=== PATIENT | female | born 1995 | race Caucasian/White ===

== ENCOUNTER 2019-06-25 22:39 | Emergency (ER) | payer OTHER ==
--- NOTE | 2019-06-25 23:24 | XR ---
EXAM: XR Bilateral Hips With Pelvis When Performed, 2 Views CLINICAL HISTORY: Pain TECHNIQUE: Two views of the bilateral hips, with pelvis when performed. COMPARISON: No relevant prior studies available. FINDINGS: Bones/joints: Unremarkable. No acute fracture. No dislocation. Soft tissues: Unremarkable. IMPRESSION: Normal bilateral hips x-rays.
[2019-06-25] MEDS ORDERED: KETOROLAC 60 MG/2 ML VIAL IM STA (23:28)
--- NOTE | 2019-06-25 23:50 | ED ---
General Adult HPI - General Chief complaint: Extremity Problem,Nontraumatic Stated complaint: Hip Pain Time Seen by Provider: 06/25/19 22:50 Source: patient, RN notes reviewed, old records reviewed Mode of arrival: ambulatory Limitations: no limitations - History of Present Illness Initial comments: 23-year-old female patient, no pertinent past medical history presents to ED with chief complaint of lateral hip pain. Patient reports that she has had hip pain for years, denies any new recent trauma or exacerbation. Patient has a loss of bowel or bladder control, saddle anesthesia, lower extremity weakness. Patient fourth that she has seen as well as surgeon for this before, was advised to use nonsteroidal anti-inflammatories. Patient denies any other complaints at this time. Patient states that she is not . Denies any rash, redness, fevers chills. Systemic: Pt denies fatigue, fever/chills, rash. Pt denies weakness, night sweats, weight loss. Neuro: Pt denies headache, visual disturbances, syncope or pre-syncope. HEENT: Pt denies ocular discharge or irritation, otalgia, rhinorrhea, pharyngitis or notable lymphadenopathy. Cardiopulmonary: Pt denies chest pain, SOB, heart palpitations, dyspnea on exertion. Abdominal/GI: Pt denies abdominal pain, n/v/d. : Pt denies dysuria, burning w/ urination, frequency/urgency. Denies new onset urinary or bowel incontinence. MSK: Pt denies loss of strength or function in extremities. Neuro: Pt denies new onset weakness, paresthesias. - Related Data Allergies Allergy/AdvReac Type Severity Reaction Status Date / Time No Known Allergies Allergy Verified 06/25/19 22:44 Review of Systems ROS Statement: Those systems with pertinent positive or pertinent negative responses have been documented in the HPI. ROS Other: All systems not noted in ROS Statement are negative. Past Medical History Additional Past Medical History / Comment(s): ovarian cyst History of Any Multi-Drug Resistant Organisms: None Reported Past Surgical History: Bowel Resection Past Psychological History: No Psychological Hx Reported Smoking Status: Current every day smoker Past Alcohol Use History: None Reported Past Drug Use History: None Reported General Exam - General Exam Comments Initial Comments: Constitutional: NAD, AOX3, Pt has pleasant affect. HEENT: NC/AT, trachea midline, neck supple, no lymphadenopathy. Posterior pharynx non erythematous, without exudates. External ears appear normal, without discharge. Mucous membranes moist. Eyes PERRLA, EOM intact. There is no scleral icterus. No pallor noted. Cardiopulmonary: RRR, no murmurs, rubs or gallops, no JVD noted. Lungs CTAB in anterior and posterior caraballo. No peripheral edema. Abdominal exam: Abdomen soft and non-distended. Abdomen non-tender to palpation in all 4 quadrants. Bowel sounds active in LLQ. No hepatosplenomegaly. No ecchymosis Neuro: CN II-XII grossly intact. No nuchal rigidity. No raccon eyes, no swift sign, no hemotympanum. No cervical spinal tenderness. MSK: No posterior calf tenderness bilaterally, homans sign negative bilaterally. Posterior tibialis and radial pulse +2 bilaterally. Sensation intact in upper and lower extremities. Full active ROM in upper and lower extremities, 5/5 stregnth. Ambulatory without difficulty. No tenderness to palpation. Still pulses intact and equal. Limitations: no limitations Course Vital Signs 06/25/19 22:42 Temperature 98.0 F Pulse Rate 76 Respiratory 18 Rate Blood Pressure 137/86 O2 Sat by Pulse 99 Oximetry Medical Decision Making - Medical Decision Making 23-year-old female patient with chief complaint of chronic bilateral hip pain. Patient wasn't stable, afebrile. Physical exam did not acute pathology. Plain films as acute pathology. Patient administered 1 dose of Toradol. Patient will discharge, follow up with primary care provider and orthopedic consult, use nonsteroidal anti-inflammatories as needed for pain. Case discussed with Dr. Rodriges. Disposition Clinical Impression: Arthralgia Disposition: HOME SELF-CARE Condition: Stable Instructions (If sedation given, give patient instructions): Arthralgia (ED) Additional Instructions: Patient to adhere to previously discussed treatment plan and will take medication(s) as directed. Patient to follow up with PCP in 1-2 days. Patient to return to ED if symptoms do not improve. Follow up with primary care provider tomorrow, follow up with orthopedic consult symptoms persist. Use Tylenol or Motrin as needed for pain. Return to ER if conditions worsen. Is patient prescribed a controlled substance at d/c from ED?: No Referrals: Amy Robledo MD [Primary Care Provider] - 1-2 days Branch,Ronak M, PAC [PHYSICIAN AIR CONDITIONING TECHNICIAN] - 1-2 days
[2019-06-26 00:01] VITALS: BP 132/89; PULSE 73; RESP 18; TEMP 98.1
== END 2019-06-25 23:59 | disposition home or self-care (01) ==
LOC: EC 22:39
DX: M25.552 Pain in left hip (principal); M25.551 Pain in right hip; G89.29 Other chronic pain; R53.1 Weakness; F17.200 Nicotine dependence, unspecified, uncomplicated
CPT/HCPCS: 73521; 96372; 99284; J1885

== ENCOUNTER → 2021-07-08 | Outpatient (CLI) | payer OTHER ==
--- NOTE | 2021-07-08 16:59 | MR ---
EXAMINATION TYPE: MR venography head wo con DATE OF EXAM: 07/08/2021 COMPARISON: None HISTORY: Papillitis MR venographic images were obtained of the brain with no contrast. There is venous flow seen in the superior sagittal sinus. There is flow in the cerebral vein. There i s flow in the sigmoid sinus and the transverse sinus. There is flow in the jugular veins. There is no evidence of sinus vein thrombosis. IMPRESSION: Normal MR venogram of the brain.
--- NOTE | 2021-07-08 18:33 | MR ---
EXAMINATION TYPE: MR brain/orbits wo/w con DATE OF EXAM: 07/08/2021 COMPARISON: None HISTORY: Papillitis CONTRAST: Standard multiplanar, multisequence MRI departmental protocol utilizing 10 mL intravenous Gadavist ga dolinium contrast. Additional images were obtained of the orbits. Ventricles and sulci appear normal. There is no mass effect nor midline shift. There is no evidence o f intracranial hemorrhage. Diffusion images show no evidence of an acute infarct. Alvarado-white matter s tructures have fairly normal signal pattern. There is no evidence of cerebral edema. Brainstem is int act. There is no evidence of posterior fossa mass. Exam limited slightly by motion. There is no evidence of retro-orbital mass. Extraocular muscles appear symmetric. Optic nerves appear normal. There is no increased fluid. The corpus callosum appears normal. Sella turcica appears normal. Optic chiasm appears normal. Pituit bernardo stalk is in the midline. There is no pathologic intracranial enhancement. There is normal enhance ment of the venous sinuses. IMPRESSION: Normal MR scan of the brain. No evidence of orbital abnormality.
== END | disposition home or self-care (01) ==
LOC: RADMRIMAIN 09:02
PROVIDERS: ATTEND Ophthalmology
DX: H46.03 Optic papillitis, bilateral (principal)
CPT/HCPCS: 70544; 70543; 70553; A9585

== ENCOUNTER 2021-10-16 07:31 | Day surgery (SDC) | payer OTHER ==
[2021-10-16] MEDS ORDERED: diazePAM 5 MG TAB PO PRN (08:20)
[2021-10-16 08:41] VITALS: TEMP 98.2
--- NOTE | 2021-10-16 13:16 | FL ---
PROCEDURE: Lumbar puncture. 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 The patient and the patient's vital signs were monitored by qualified independent radiology personnel. TECHNIQUE: The procedure and potential risks were explained to patient and an informed consent was obtained with teach back. Site and side was verified. A time out was performed. The patient was placed prone on the fluoroscopy table and the L3-L4 level was localized and the skin was marked and was prepped and draped in the usual sterile fashion. Lidocaine was used for local anesthesia. Utilizing fluoroscopic guidance a 5 inch 22-gauge spinal nee dle was placed through the skin and into the subarachnoid space. Opening pressure was recorded at 13 cm H2O. Approximately 8 mL of clear, colorless (but initially blood-tinged) cerebral spinal fluid was obtain ed. The patient tolerated the procedure well and was sent back to the recovery room in satisfactory condi tion. The fluid was sent to the lab for analysis. The estimated blood loss was minimal. The patient's condition was unchanged following the procedure. Fluoroscopy time: 18 seconds Total images: 1. IMPRESSION: Successful accumulation of 8 mL of clear (but initially blood-tinged) CSF. Opening pressure recorded at 13 cm H2O.
[2021-10-16 16:38] VITALS: PULSE 87
[2021-10-16 16:43] VITALS: BP 135/74; RESP 16
== END 2021-10-16 14:00 | disposition home or self-care (01) ==
LOC: RADPROMAIN 07:31
PROVIDERS: ATTEND Ophthalmology
DX: H46.03 Optic papillitis, bilateral (principal)
CPT/HCPCS: 62328; 88108

== ENCOUNTER 2021-12-22 13:44 | Emergency (ER) | payer OTHER ==
[2021-12-22 13:48] VITALS: TEMP 98.6
[2021-12-22] MEDS ORDERED: IBUPROFEN 800 MG TAB PO STA (14:37)
--- NOTE | 2021-12-22 14:45 | ED ---
General Adult HPI - General Chief complaint: Dizziness Stated complaint: Fall-R foot injury Time Seen by Provider: 12/22/21 14:35 Source: patient, RN notes reviewed, old records reviewed Mode of arrival: wheelchair Limitations: no limitations - History of Present Illness Initial comments: 26-year-old female, alert and oriented 4, presents to the emergency room with complaints of right ankle pain and swelling. Patient states she stood up last night around 9:30pm and got dizzy causing her to twist her ankle. She states that she didn't eat all day yesterday which she believes was the cause of her dizziness. Her symptoms have resolved however the right ankle is swollen and painful with movement which is why she came to ER. She denies any other symptoms, no fevers, no nausea, vomiting diarrhea or fevers. She is a pack-a-day smoker -: hour(s) (18) Location: right, lower extremity (Ankle) Radiation: proximal (Lower leg) Severity scale (1-10): 5 Quality: aching Improves with: immobilization Worsens with: movement Associated Symptoms: denies other symptoms - Related Data Home Medications Medication Instructions Recorded Confirmed Dextroamphetamine/Amphetamine 25 mg PO DAILY 10/05/21 12/22/21 [Adderall Xr] Etonogestrel [Nexplanon] 1 implant SQ DIRECTED 10/05/21 12/22/21 Ibuprofen [Advil] 200 mg PO Q8HR PRN 10/05/21 12/22/21 OXcarbazepine [Trileptal] 300 mg PO BID 10/05/21 12/22/21 cloNIDine HCL 0.2 mg PO HS 10/05/21 12/22/21 hydrOXYzine pamoate [hydrOXYzine 25 mg PO QID PRN 10/05/21 12/22/21 PAMOATE] Mirtazapine [Remeron] 45 mg PO HS 12/22/21 12/22/21 Previous Rx's Medication Instructions Recorded Ibuprofen [Motrin] 800 mg PO Q6HR #30 tab 12/22/21 Allergies Allergy/AdvReac Type Severity Reaction Status Date / Time Penicillins Allergy Rash/Hives Verified 12/22/21 15:31 Review of Systems ROS Statement: Those systems with pertinent positive or pertinent negative responses have been documented in the HPI. ROS Other: All systems not noted in ROS Statement are negative. Past Medical History Past Medical History: No Reported History Additional Past Medical History / Comment(s): ovarian cyst, frequent headaches which patient states her Doctor thinks has to do with her eyes History of Any Multi-Drug Resistant Organisms: None Reported Past Surgical History: Bowel Resection, Section Additional Past Surgical History / Comment(s): eye surgery as a 5 year old, bowel surgery at 4 months Past Anesthesia/Blood Transfusion Reactions: No Reported Reaction Additional Past Anesthesia/Blood Transfusion Reaction / Comment(s): patient was an infant with surgery so not sure but does not think she had a reaction, no previous blood transfusion Past Psychological History: Anxiety, Depression Smoking Status: Current every day smoker Past Alcohol Use History: Occasional Past Drug Use History: None Reported - Past Family History Mother Family Medical History: No Reported History Additional Family Medical History / Comment(s): Maternal Aunt has MS General Exam Limitations: no limitations General appearance: alert, in no apparent distress Respiratory exam: Present: normal lung sounds bilaterally. Absent: respiratory distress, wheezes, rales, rhonchi, stridor, chest wall tenderness, accessory muscle use, decreased breath sounds Cardiovascular Exam: Present: regular rate, normal rhythm GI/Abdominal exam: Present: soft. Absent: distended, tenderness Right Ankle exam: Present: full ROM, tenderness (Right lateral ankle), swelling. Absent: abrasion, laceration, ecchymosis, crepitus, dislocation, erythema Foot/Toe exam: Present: normal inspection, full ROM. Absent: tenderness, swelling, ecchymosis Neurovascular tendon exam: Present: no vascular compromise. Absent: abnormal cap refill, extremity cold to touch, pallor, foot drop (Achilles tendon intact by pinch test) Neurological exam: Present: alert, oriented X3 Psychiatric exam: Present: normal affect, normal mood Skin exam: Present: warm, dry, intact. Absent: cyanosis, diaphoretic Course Vital Signs 12/22/21 13:45 Temperature 98.6 F Pulse Rate 92 Respiratory 20 Rate Blood Pressure 150/82 O2 Sat by Pulse 100 Oximetry Medical Decision Making - Medical Decision Making Patient presents with right ankle pain after rolling it yesterday at home around 9:30 PM. She states that she was dizzy at that time because she hadn't eaten all day. Her dizziness has resolved. X-ray of the right ankle shows no fracture or dislocation. Joint spaces appear within normal limits. There is some soft tissue swelling laterally. She denies midfoot pain. Patient does have good range of motion. Capillary refill less than 2 seconds and pedal pulses are present. Patient was given an air splint directed and follow-up with orthopedics in 1 week if pain continues. Tylenol or Motrin for pain. Rest, ice and elevate. Case discussed with Dr. Barrett Karimi Clinical Impression: Ankle sprain Disposition: HOME SELF-CARE Condition: Good Instructions (If sedation given, give patient instructions): Ankle Sprain (ED), Ankle Stirrup Splint (ED) Additional Instructions: Rest, ice, and elevate ankle at home. Wear the ankle splint as provided for support. Take Motrin as needed for pain. Follow-up with orthopedics next week. Return to the emergency room with a new or concerning symptoms. Prescriptions: Ibuprofen [Motrin] 800 mg PO Q6HR #30 tab Is patient prescribed a controlled substance at d/c from ED?: No Referrals: Amy Robledo MD [Primary Care Provider] - 1-2 days Kianna Bal DO [Doctor of Osteopathic Medicine] - 1-2 days Time of Disposition: 15:27
--- NOTE | 2021-12-22 15:00 | XR ---
EXAMINATION TYPE: XR ankle complete RT DATE OF EXAM: 12/22/2021 COMPARISON: NONE HISTORY: Pain TECHNIQUE: Frontal, lateral and oblique images of the right ankle are obtained. COMPARISON: None. FINDINGS: There is no acute fracture/dislocation evident. The joint spaces appear within normal odonnell its. Soft tissue swelling laterally. IMPRESSION: There is no acute fracture or dislocation seen.
[2021-12-22 17:22] VITALS: BP 118/79; PULSE 76; RESP 18
== END 2021-12-22 16:05 | disposition home or self-care (01) ==
LOC: EC 13:44
DX: S93.401A Sprain of unspecified ligament of right ankle, initial encounter (principal); F17.200 Nicotine dependence, unspecified, uncomplicated; Z88.0 Allergy status to penicillin; X50.1XXA Overexertion from prolonged static or awkward postures, initial encounter
CPT/HCPCS: 73610; 99283; 29515; L4350

== ENCOUNTER 2022-05-11 18:43 | Emergency (ER) | payer OTHER ==
[2022-05-11 19:50] LABS: Appearance,Urine Turbid (Clear); Bilirubin,Urine Negative (Negative); Blood,Urine Large (Negative); Color,Urine Yellow; Glucose,Urine (UA) Negative (Negative); Ketones,Urine Negative (Negative); Leukocyte Esterase,Urine Large (Negative); Mucus,Urine Rare /hpf; Nitrite,Urine Negative (Negative); Protein,Urine 1+ (Negative); RBC,Urine 88 /hpf (0-5); Specific Gravity,Urine 1.013 (1.001-1.035); Urobilinogen,Urine <2.0 mg/dL (<2.0); WBC,Urine >182 /hpf (0-5)
[2022-05-11] MEDS ORDERED: KETOROLAC 15 MG/ML 1 ML VIAL IVP STA (20:05)
--- NOTE | 2022-05-11 20:09 | ED ---
Female Urogenital HPI - General Chief complaint: Urogenital Stated complaint: UTI Time Seen by Provider: 05/11/22 20:00 Source: patient, family, RN notes reviewed, old records reviewed Mode of arrival: ambulatory Limitations: no limitations - History of Present Illness Initial comments: 26-year-old female presents with 1 month of dysuria. She states that she has now developed left flank pain which made her come to the hospital. She states that the pain is 10 out of 10 and constant in nature. Worse with palpation. No reported fevers. Denies nausea vomiting. She is a 2-3 pack a day smoker. MD Complaint: dysuria -: month(s) (1) Radiation: L flank Severity scale (1-10): 10 Quality: aching Consistency: constant Improves with: none Worsens with: movement Associated Symptoms: dysuria - Related Data Home Medications Medication Instructions Recorded Confirmed Dextroamphetamine/Amphetamine 25 mg PO DAILY 10/05/21 12/22/21 [Adderall Xr] Etonogestrel [Nexplanon] 1 implant SQ DIRECTED 10/05/21 12/22/21 Ibuprofen [Advil] 200 mg PO Q8HR PRN 10/05/21 12/22/21 OXcarbazepine [Trileptal] 300 mg PO BID 10/05/21 12/22/21 cloNIDine HCL 0.2 mg PO HS 10/05/21 12/22/21 hydrOXYzine pamoate [hydrOXYzine 25 mg PO QID PRN 10/05/21 12/22/21 PAMOATE] Mirtazapine [Remeron] 45 mg PO HS 12/22/21 12/22/21 Previous Rx's Medication Instructions Recorded Ibuprofen [Motrin] 800 mg PO Q6HR #30 tab 12/22/21 Cephalexin [Keflex] 500 mg PO Q8HR 5 Days #15 cap 05/11/22 Allergies Allergy/AdvReac Type Severity Reaction Status Date / Time Penicillins Allergy Rash/Hives Verified 05/11/22 19:24 Review of Systems ROS Statement: Those systems with pertinent positive or pertinent negative responses have been documented in the HPI. ROS Other: All systems not noted in ROS Statement are negative. Past Medical History Past Medical History: No Reported History Additional Past Medical History / Comment(s): ovarian cyst, frequent headaches which patient states her Doctor thinks has to do with her eyes History of Any Multi-Drug Resistant Organisms: None Reported Past Surgical History: Bowel Resection, Section Additional Past Surgical History / Comment(s): eye surgery as a 5 year old, bowel surgery at 4 months Past Anesthesia/Blood Transfusion Reactions: No Reported Reaction Additional Past Anesthesia/Blood Transfusion Reaction / Comment(s): patient was an with surgery so not sure but does not think she had a reaction, no previous blood transfusion Past Psychological History: Anxiety, Depression Smoking Status: Current every day smoker Past Alcohol Use History: Occasional Past Drug Use History: None Reported - Past Family History Mother Family Medical History: No Reported History Additional Family Medical History / Comment(s): Maternal Aunt has MS General Exam Limitations: no limitations General appearance: alert, in no apparent distress Head exam: Present: atraumatic ENT exam: Present: mucous membranes moist Neck exam: Absent: tenderness, meningismus Respiratory exam: Present: normal lung sounds bilaterally. Absent: respiratory distress, accessory muscle use Cardiovascular Exam: Present: regular rate GI/Abdominal exam: Present: soft. Absent: distended, rigid Back exam: Present: normal inspection, full ROM, CVA tenderness (L). Absent: tenderness, CVA tenderness (R), vertebral tenderness, rash noted Neurological exam: Present: alert, oriented X3, normal gait Psychiatric exam: Present: normal affect, normal mood Skin exam: Present: warm, dry, normal color. Absent: cyanosis, diaphoretic, petechiae, pallor Course Vital Signs 05/11/22 05/11/22 19:24 22:45 Temperature 97.6 F 98.1 F Pulse Rate 84 92 Respiratory 16 15 Rate Blood Pressure 148/101 123/89 O2 Sat by Pulse 100 98 Oximetry Medical Decision Making - Medical Decision Making Ultrasound kidneys and bladder show no evidence of renal mass. There is some echogenicity in the urinary bladder that could be small stones or debris. No hydronephrosis. White blood cell count is 14.5. Urinalysis shows occasional bacteria with greater than 182 white blood cells. Vital signs are stable. Afebrile. Patient will be treated for UTI with Keflex directed follow-up with her primary care doctor and urology next week for reevaluation. Return to the emergency room with a concerning symptoms including fevers, persistent nausea vomiting or increased pain. - Lab Data Result diagrams: 05/11/22 21:09 05/11/22 21:09 Lab Results 05/11/22 05/11/22 05/11/22 Range/Units 19:25 19:25 21:09 WBC 14.5 H (3.8-10.6) k/uL RBC 5.17 (3.80-5.40) m/uL Hgb 16.3 H (11.4-16.0) gm/dL Hct 46.6 H (34.0-46.0) % MCV 90.1 (80.0-100.0) fL MCH 31.6 (25.0-35.0) pg MCHC 35.1 (31.0-37.0) g/dL RDW 12.4 (11.5-15.5) % Plt Count 297 (150-450) k/uL MPV 8.3 Neutrophils % 74 % Lymphocytes % 18 % Monocytes % 5 % Eosinophils % 1 % Basophils % 1 % Neutrophils # 10.7 H (1.3-7.7) k/uL Lymphocytes # 2.6 (1.0-4.8) k/uL Monocytes # 0.8 (0-1.0) k/uL Eosinophils # 0.2 (0-0.7) k/uL Basophils # 0.1 (0-0.2) k/uL Sodium (137-145) mmol/L Potassium (3.5-5.1) mmol/L Chloride (98-107) mmol/L Carbon Dioxide (22-30) mmol/L Anion Gap mmol/L BUN (7-17) mg/dL Creatinine (0.52-1.04) mg/dL Est GFR (CKD-EPI)AfAm (>60 ml/min/1.73 sqM) Est GFR (CKD-EPI)NonAf (>60 ml/min/1.73 sqM) Glucose (74-99) mg/dL Calcium (8.4-10.2) mg/dL Total Bilirubin (0.2-1.3) mg/dL AST (14-36) U/L ALT (4-34) U/L Alkaline Phosphatase (38-126) U/L Total Protein (6.3-8.2) g/dL Albumin (3.5-5.0) g/dL Urine Color Yellow Yellow Urine Appearance Turbid H Turbid H (Clear) Urine pH 6.0 6.0 (5.0-8.0) Ur Specific [place] 1.013 1.014 (1.001-1.035) Urine Protein 1+ H 1+ H (Negative) Urine Glucose (UA) Negative Negative (Negative) Urine Ketones Negative Negative (Negative) Urine Blood Large H Moderate H (Negative) Urine Nitrite Negative Negative (Negative) Urine Bilirubin Negative Negative (Negative) Urine Urobilinogen <2.0 <2.0 (<2.0) mg/dL Ur Leukocyte Esterase Large H Large H (Negative) Urine RBC 88 H 59 H (0-5) /hpf Urine WBC >182 H >182 H (0-5) /hpf Urine WBC Clumps Many H Many H (None) /hpf Urine Bacteria Occasional H (None) /hpf Urine Mucus Rare H Rare H (None) /hpf 05/11/22 Range/Units 21:09 WBC (3.8-10.6) k/uL RBC (3.80-5.40) m/uL Hgb (11.4-16.0) gm/dL Hct (34.0-46.0) % MCV (80.0-100.0) fL MCH (25.0-35.0) pg MCHC (31.0-37.0) g/dL RDW (11.5-15.5) % Plt Count (150-450) k/uL MPV Neutrophils % % Lymphocytes % % Monocytes % % Eosinophils % % Basophils % % Neutrophils # (1.3-7.7) k/uL Lymphocytes # (1.0-4.8) k/uL Monocytes # (0-1.0) k/uL Eosinophils # (0-0.7) k/uL Basophils # (0-0.2) k/uL Sodium 141 (137-145) mmol/L Potassium 4.7 (3.5-5.1) mmol/L Chloride 109 H (98-107) mmol/L Carbon Dioxide 18 L (22-30) mmol/L Anion Gap 14 mmol/L BUN 7 (7-17) mg/dL Creatinine 0.71 (0.52-1.04) mg/dL Est GFR (CKD-EPI)AfAm >90 (>60 ml/min/1.73 sqM) Est GFR (CKD-EPI)NonAf >90 (>60 ml/min/1.73 sqM) Glucose 80 (74-99) mg/dL Calcium 10.3 H (8.4-10.2) mg/dL Total Bilirubin 1.4 H (0.2-1.3) mg/dL AST 38 H (14-36) U/L ALT 22 (4-34) U/L Alkaline Phosphatase 100 (38-126) U/L Total Protein 8.9 H (6.3-8.2) g/dL Albumin 5.5 H (3.5-5.0) g/dL Urine Color Urine Appearance (Clear) Urine pH (5.0-8.0) Ur Specific [place] (1.001-1.035) Urine Protein (Negative) Urine Glucose (UA) (Negative) Urine Ketones (Negative) Urine Blood (Negative) Urine Nitrite (Negative) Urine Bilirubin (Negative) Urine Urobilinogen (<2.0) mg/dL Ur Leukocyte Esterase (Negative) Urine RBC (0-5) /hpf Urine WBC (0-5) /hpf Urine WBC Clumps (None) /hpf Urine Bacteria (None) /hpf Urine Mucus (None) /hpf Disposition Clinical Impression: Urinary tract infection Disposition: HOME SELF-CARE Condition: Good Instructions (If sedation given, give patient instructions): Urinary Tract Infection in Women (ED) Additional Instructions: Take antibiotics as prescribed and follow-up with urology next week. Return to the emergency room with any new or concerning symptoms. Prescriptions: Cephalexin [Keflex] 500 mg PO Q8HR 5 Days #15 cap Is patient prescribed a controlled substance at d/c from ED?: No Referrals: Magalis Montanez MD [Primary Care Provider] - 1-2 days Kulwinder Tse MD [STAFF PHYSICIAN] - 1-2 days Time of Disposition: 22:12
[2022-05-11] MEDS ORDERED: cefTRIAXone IN SWFI 1,000 MG/10 ML SYRINGE IVP STA (20:48)
[2022-05-11 21:36] LABS: Basophils # (A) 0.1 k/uL (0-0.2); Basophils % (A) 1 %; Eosinophils # (A) 0.2 k/uL (0-0.7); Eosinophils % (A) 1 %; HCT 46.6 % (34.0-46.0); HGB 16.3 gm/dL (11.4-16.0); Lymphocytes # (A) 2.6 k/uL (1.0-4.8); Lymphocytes % (A) 18 %; MCH 31.6 pg (25.0-35.0); MCHC 35.1 g/dL (31.0-37.0); MCV 90.1 fL (80.0-100.0); Mean Platelet Volume 8.3; Monocytes # (A) 0.8 k/uL (0-1.0); Monocytes % (A) 5 %; Neutrophils # (A) 10.7 k/uL (1.3-7.7); Neutrophils % (A) 74 %; Platelet Count 297 k/uL (150-450); RBC 5.17 m/uL (3.80-5.40); RDW 12.4 % (11.5-15.5); WBC 14.5 k/uL (3.8-10.6)
--- NOTE | 2022-05-11 22:01 | US ---
EXAMINATION TYPE: US kidneys/renal and bladder DATE OF EXAM: 05/11/2022 COMPARISON: NONE CLINICAL HISTORY: left flank pain. lt flank pain, dysuria EXAM MEASUREMENTS: Right Kidney: 10.2 x 5.0 x 4.8 cm Left Kidney: 10.8 x 4.3 x 6.2 cm Right Kidney: No hydronephrosis or masses seen Left Kidney: No hydronephrosis or masses seen Bladder: left sided dependant sediment versus other etiology Bilateral Jets seen: only the left There is no evidence for hydronephrosis at this point in time. No nephrolithiasis is seen. No armand s are identified. The urinary bladder is anechoic. Bilateral ureteral jets are seen. IMPRESSION: No evidence of renal mass. No hydronephrosis. There is some echogenicity in the dependent urinary fide dder that could be small stones or debris.
[2022-05-11 22:13] LABS: Appearance,Urine Turbid (Clear); Bacteria,Urine Occasional /hpf; Bilirubin,Urine Negative (Negative); Blood,Urine Moderate (Negative); Color,Urine Yellow; Glucose,Urine (UA) Negative (Negative); Ketones,Urine Negative (Negative); Leukocyte Esterase,Urine Large (Negative); Mucus,Urine Rare /hpf; Nitrite,Urine Negative (Negative); Protein,Urine 1+ (Negative); RBC,Urine 59 /hpf (0-5); Specific Gravity,Urine 1.014 (1.001-1.035); Urobilinogen,Urine <2.0 mg/dL (<2.0); WBC,Urine >182 /hpf (0-5)
[2022-05-11 22:14] LABS: ALT 22 U/L (4-34); African American GFR (CKD) >90 (>60 ml/min/1.73 sqM); Anion Gap 14 mmol/L; Blood Urea Nitrogen 7 mg/dL (7-17); Calcium 10.3 mg/dL (8.4-10.2); Carbon Dioxide 18 mmol/L (22-30); Chloride 109 mmol/L (98-107); Glucose 80 mg/dL (74-99); Non-African American GFR(CKD) >90 (>60 ml/min/1.73 sqM); Sodium 141 mmol/L (137-145); Total Bilirubin 1.4 mg/dL (0.2-1.3)
[2022-05-11 22:16] LABS: AST 38 U/L (14-36); Albumin 5.5 g/dL (3.5-5.0); Alkaline Phosphatase 100 U/L (38-126); Potassium 4.7 mmol/L (3.5-5.1); Total Protein 8.9 g/dL (6.3-8.2)
[2022-05-11 22:47] VITALS: BP 123/89; PULSE 92; RESP 15; TEMP 98.1
== END 2022-05-11 22:40 | disposition home or self-care (01) ==
LOC: EC 18:43
DX: N39.0 Urinary tract infection, site not specified (principal); F17.200 Nicotine dependence, unspecified, uncomplicated; Z88.0 Allergy status to penicillin
CPT/HCPCS: 36415; 80053; 85025; 81001; 87040; 87086; 76770; 99284; 96374; 96375; J0696; J1885; 87077; 87186

== ENCOUNTER 2022-11-17 15:48 | Emergency (ER) | payer OTHER ==
--- NOTE | 2022-11-17 16:23 | ED ---
Abdominal Pain HPI - General Chief Complaint: Abdominal Pain Stated Complaint: Abd pain Time Seen by Provider: 11/17/22 16:03 Source: patient, RN notes reviewed Mode of arrival: ambulatory Limitations: no limitations - History of Present Illness Initial Comments: Patient is a 26-year-old female presenting to the emergency room with complaints of generalized abdominal pain ongoing for approximately 48 hours without any aggravating or alleviating factors. She also complains of needing to "push" to urinate without any dysuria, urinary frequency or hematuria. She denies any chest pain, shortness of breath, nausea, vomiting, diarrhea, abnormal vaginal discharge, fevers or chills. She had a workup completed for left flank pain in May 2022 which showed potential urinary calculi. She denies any concern for STDs or pregnancies and reports that her next plan on was inserted in June 2021. She does have a past medical history significant for ovarian cysts and headaches. - Related Data Home Medications Medication Instructions Recorded Confirmed Dextroamphetamine/Amphetamine 25 mg PO DAILY 10/05/21 12/22/21 [Adderall Xr] Etonogestrel [Nexplanon] 1 implant SQ DIRECTED 10/05/21 12/22/21 Ibuprofen [Advil] 200 mg PO Q8HR PRN 10/05/21 12/22/21 OXcarbazepine [Trileptal] 300 mg PO BID 10/05/21 12/22/21 cloNIDine HCL 0.2 mg PO HS 10/05/21 12/22/21 hydrOXYzine pamoate [hydrOXYzine 25 mg PO QID PRN 10/05/21 12/22/21 PAMOATE] Mirtazapine [Remeron] 45 mg PO HS 12/22/21 12/22/21 Previous Rx's Medication Instructions Recorded Ibuprofen [Motrin] 800 mg PO Q6HR #30 tab 12/22/21 Cephalexin [Keflex] 500 mg PO Q8HR 5 Days #15 cap 05/11/22 Allergies Allergy/AdvReac Type Severity Reaction Status Date / Time Penicillins Allergy Rash/Hives Verified 11/17/22 15:59 Review of Systems ROS Statement: Those systems with pertinent positive or pertinent negative responses have been documented in the HPI. ROS Other: All systems not noted in ROS Statement are negative. Past Medical History Past Medical History: No Reported History Additional Past Medical History / Comment(s): ovarian cyst, frequent headaches which patient states her Doctor thinks has to do with her eyes History of Any Multi-Drug Resistant Organisms: None Reported Past Surgical History: Bowel Resection, Section Additional Past Surgical History / Comment(s): eye surgery as a 5 year old, bowel surgery at 4 months Past Anesthesia/Blood Transfusion Reactions: No Reported Reaction Additional Past Anesthesia/Blood Transfusion Reaction / Comment(s): patient was an with surgery so not sure but does not think she had a reaction, no previous blood transfusion Past Psychological History: Anxiety, Depression Smoking Status: Current every day smoker Past Alcohol Use History: Occasional Past Drug Use History: None Reported - Past Family History Mother Family Medical History: No Reported History Additional Family Medical History / Comment(s): Maternal Aunt has MS General Exam - General Exam Comments Initial Comments: GENERAL: No acute distress, well developed, well nourished. Obese. HEENT: Normocephalic, atraumatic. Pupils equal, round, reactive to light. Moist mucous membranes. LUNGS: No respiratory distress. Clear to auscultation, no adventitious sounds, no use of accessory muscles. HEART: Regular rate and rhythm without murmur, rub, or gallop. ABDOMEN: Normal bowel sounds. Soft, non-tender, non-distended. BACK: Normal inspection. No CVA tenderness. EXTREMITIES: No edema. No tenderness. Moves all extremities. NEUROLOGIC: Alert & oriented x 3. CN II-XII grossly intact. PSYCHIATRIC: Normal affect and behavior. DERMATOLOGIC: Skin intact, without rashes or lesions noted. Limitations: no limitations Course Vital Signs 11/17/22 11/17/22 15:59 18:29 Temperature 98.2 F 98.1 F Pulse Rate 90 98 Respiratory 16 19 Rate Blood Pressure 149/98 143/102 O2 Sat by Pulse 99 98 Oximetry Medical Decision Making - Medical Decision Making Was pt. sent in by a medical professional or institution (, PA, MANUFACTURING WORKER, urgent care, hospital, or shelter...) When possible be specific @ -No Did you speak to anyone other than the patient for history (EMS, parent, family, police, friend...)? What history was obtained from this source @ -No Did you review nursing and triage notes (agree or disagree)? Why? @ -I reviewed and agree with nursing and triage notes Were old charts reviewed (outside hosp., previous admission, EMS record, old EKG, old radiological studies, urgent care reports/EKG's, shelter records)? Report findings @ -No old charts were reviewed Differential Diagnosis (chest pain, altered mental status, abdominal pain women, abdominal pain men, vaginal bleeding, weakness, fever, dyspnea, syncope, headache, dizziness, GI bleed, back pain, seizure, CVA, palpatations, mental health)? @ -Differential Abdominal Pain Women: Appendicitis, Cholecystitis, diverticulosis, ischemic bowel, pancreatitis, hepatitis, UTI, gastroenteritis, AAA, incarcerated hernia, bowel obstruction, constipation, inflammatory bowel, hepatitis, peptic ulcer disease, splenic infarction, perforated viscus, vulvitis, ovarian torsion, PID, kidney stone, placenta abruption, this is not meant to be an all-inclusive list EKG interpreted by me (3pts min.). @ -None done X-rays interpreted by me (1pt min.). @ -None done CT interpreted by me (1pt min.). @ -None done U/S interpreted by me (1pt. min.). @ -Radiologist report reviewed What testing was considered but not performed or refused? (CT, X-rays, U/S, labs)? Why? @ -None What meds were considered but not given or refused? Why? @ -Analgesics offered and declined Did you discuss the management of the patient with other professionals (professionals i.e. , PA, MANUFACTURING WORKER, lab, RT, psych nurse, clinical social work aide, jute bag clipper, teacher, chairman president and chief executive officer, case management coordinator)? Give summary @ -No Was smoking cessation discussed for >3mins.? @ -No Was critical care preformed (if so, how long)? @ -No Were there social determinants of health that impacted care today? How? (Homelessness, low income, unemployed, alcoholism, drug addiction, transportation, low edu. Level, literacy, decrease access to med. care, [facility], rehab)? @ -No Was there de-escalation of care discussed even if they declined (Discuss DNR or withdrawal of care, Hospice)? DNR status @ -No What co-morbidities impacted this encounter? (DM, HTN, Smoking, COPD, CAD, Cancer, CVA, ARF, Chemo, Hep., AIDS, mental health diagnosis, sleep apnea, morbid obesity)? @ -None Was patient admitted / discharged? Hospital course, mention meds given and route, prescriptions, significant lab abnormalities, going to OR and other pertinent info. @ - 26-year-old female with abdominal pain that is generalized without any associated symptoms ongoing for 48 hours and one day of urinary hesitancy requiring her to "push" when she voids. No dysuria or hematuria. Denies any analgesic need at this time. Will start workup for abdominal pain and urinary hesitancy with CBC, CMP, urinalysis, urine for , along with ultrasound of the abdomen, pelvis. CBC with slightly elevated hemoglobin, no leukocytosis. CMP without significant abnormalities. Urinalysis normal. Ultrasound of the abdomen limited along with pelvis demonstrates no evidence of renal stones, acute abdominal process, urinary bladder abnormalities, uterine masses, or uterine prolapse. Left ovarian cysts noted. Patient with history of ovarian cysts. No indication for further workup at this time. Findings discussed with patient at length. Strict return parameters reviewed. Questions and concerns answered. Will discharge home in stable condition with follow-up with her primary care provider. Undiagnosed new problem with uncertain prognosis? @ -No Drug Therapy requiring intensive monitoring for toxicity (Heparin, Nitro, Insulin, Cardizem)? @ -No Were any procedures done? @ -No Diagnosis/symptom? @ -Abdominal pain Acute, or Chronic, or Acute on Chronic? @ -Acute Uncomplicated (without systemic symptoms) or Complicated (systemic symptoms)? @ -Uncomplicated Side effects of treatment? @ -No Exacerbation, Progression, or Severe Exacerbation? @ -No Poses a threat to life or bodily function? How? (Chest pain, [place], [place], pneumonia, PE, COPD, DKA, ARF, appy, cholecystitis, CVA, Diverticulitis, Homicidal, Suicidal, threat to staff... and all critical care pts) @ -No Diagnosis/symptom? @ -Urinary hesitancy Acute, or Chronic, or Acute on Chronic? @ -Acute Uncomplicated (without systemic symptoms) or Complicated (systemic symptoms)? @ -Uncomplicated Side effects of treatment? @ -none Exacerbation, Progression, or Severe Exacerbation] @ -no Poses a threat to life or bodily function? @ -no Case discussed with Dr. Avila. - Lab Data Result diagrams: 11/17/22 16:32 11/17/22 16:32 Lab Results 11/17/22 11/17/22 11/17/22 Range/Units 16:32 16:32 16:32 WBC 8.9 (3.8-10.6) k/uL RBC 5.18 (3.80-5.40) m/uL Hgb 16.1 H (11.4-16.0) gm/dL Hct 46.4 H (34.0-46.0) % MCV 89.4 (80.0-100.0) fL MCH 31.1 (25.0-35.0) pg MCHC 34.8 (31.0-37.0) g/dL RDW 12.3 (11.5-15.5) % Plt Count 308 (150-450) k/uL MPV 7.7 Neutrophils % 68 % Lymphocytes % 24 % Monocytes % 4 % Eosinophils % 2 % Basophils % 1 % Neutrophils # 6.0 (1.3-7.7) k/uL Lymphocytes # 2.2 (1.0-4.8) k/uL Monocytes # 0.4 (0-1.0) k/uL Eosinophils # 0.2 (0-0.7) k/uL Basophils # 0.1 (0-0.2) k/uL Sodium (137-145) mmol/L Potassium (3.5-5.1) mmol/L Chloride (98-107) mmol/L Carbon Dioxide (22-30) mmol/L Anion Gap mmol/L BUN (7-17) mg/dL Creatinine (0.52-1.04) mg/dL Est GFR (CKD-EPI)AfAm (>60 ml/min/1.73 sqM) Est GFR (CKD-EPI)NonAf (>60 ml/min/1.73 sqM) Glucose (74-99) mg/dL Calcium (8.4-10.2) mg/dL Total Bilirubin (0.2-1.3) mg/dL AST (14-36) U/L ALT (4-34) U/L Alkaline Phosphatase (38-126) U/L Total Protein (6.3-8.2) g/dL Albumin (3.5-5.0) g/dL Amylase (30-110) U/L Lipase (23-300) U/L Urine Color Colorless Urine Appearance Clear (Clear) Urine pH 7.0 (5.0-8.0) Ur Specific [place] 1.004 (1.001-1.035) Urine Protein Negative (Negative) Urine Glucose (UA) Negative (Negative) Urine Ketones Negative (Negative) Urine Blood Negative (Negative) Urine Nitrite Negative (Negative) Urine Bilirubin Negative (Negative) Urine Urobilinogen <2.0 (<2.0) mg/dL Ur Leukocyte Esterase Negative (Negative) Urine HCG, Qual Not Detected (Not Detectd) 11/17/22 Range/Units 16:32 WBC (3.8-10.6) k/uL RBC (3.80-5.40) m/uL Hgb (11.4-16.0) gm/dL Hct (34.0-46.0) % MCV (80.0-100.0) fL MCH (25.0-35.0) pg MCHC (31.0-37.0) g/dL RDW (11.5-15.5) % Plt Count (150-450) k/uL MPV Neutrophils % % Lymphocytes % % Monocytes % % Eosinophils % % Basophils % % Neutrophils # (1.3-7.7) k/uL Lymphocytes # (1.0-4.8) k/uL Monocytes # (0-1.0) k/uL Eosinophils # (0-0.7) k/uL Basophils # (0-0.2) k/uL Sodium 143 (137-145) mmol/L Potassium 3.8 (3.5-5.1) mmol/L Chloride 107 (98-107) mmol/L Carbon Dioxide 24 (22-30) mmol/L Anion Gap 12 mmol/L BUN 10 (7-17) mg/dL Creatinine 0.66 (0.52-1.04) mg/dL Est GFR (CKD-EPI)AfAm >90 (>60 ml/min/1.73 sqM) Est GFR (CKD-EPI)NonAf >90 (>60 ml/min/1.73 sqM) Glucose 92 (74-99) mg/dL Calcium 10.4 H (8.4-10.2) mg/dL Total Bilirubin 0.9 (0.2-1.3) mg/dL AST 29 (14-36) U/L ALT 43 H (4-34) U/L Alkaline Phosphatase 93 (38-126) U/L Total Protein 8.7 H (6.3-8.2) g/dL Albumin 5.4 H (3.5-5.0) g/dL Amylase 57 (30-110) U/L Lipase 52 (23-300) U/L Urine Color Urine Appearance (Clear) Urine pH (5.0-8.0) Ur Specific [place] (1.001-1.035) Urine Protein (Negative) Urine Glucose (UA) (Negative) Urine Ketones (Negative) Urine Blood (Negative) Urine Nitrite (Negative) Urine Bilirubin (Negative) Urine Urobilinogen (<2.0) mg/dL Ur Leukocyte Esterase (Negative) Urine HCG, Qual (Not Detectd) Disposition Clinical Impression: Abdominal pain, Urinary hesitancy Disposition: HOME SELF-CARE Condition: Stable Instructions (If sedation given, give patient instructions): Abdominal Pain (ED) Additional Instructions: Please stay well hydrated. Please follow-up with your primary care provider. Please return to the Emergency Department if symptoms worsen or any other concerns. Is patient prescribed a controlled substance at d/c from ED?: No Referrals: None,Stated [Primary Care Provider] - 1-2 days Time of Disposition: 19:06
[2022-11-17 16:57] LABS: Basophils # (A) 0.1 k/uL (0-0.2); Basophils % (A) 1 %; Eosinophils # (A) 0.2 k/uL (0-0.7); Eosinophils % (A) 2 %; HCT 46.4 % (34.0-46.0); HGB 16.1 gm/dL (11.4-16.0); Lymphocytes # (A) 2.2 k/uL (1.0-4.8); Lymphocytes % (A) 24 %; MCH 31.1 pg (25.0-35.0); MCHC 34.8 g/dL (31.0-37.0); MCV 89.4 fL (80.0-100.0); Mean Platelet Volume 7.7; Monocytes # (A) 0.4 k/uL (0-1.0); Monocytes % (A) 4 %; Neutrophils % (A) 68 %; Platelet Count 308 k/uL (150-450); RBC 5.18 m/uL (3.80-5.40); RDW 12.3 % (11.5-15.5); WBC 8.9 k/uL (3.8-10.6)
[2022-11-17 17:03] LABS: Appearance,Urine Clear (Clear); Bilirubin,Urine Negative (Negative); Blood,Urine Negative (Negative); Color,Urine Colorless; Glucose,Urine (UA) Negative (Negative); Ketones,Urine Negative (Negative); Leukocyte Esterase,Urine Negative (Negative); Nitrite,Urine Negative (Negative); Protein,Urine Negative (Negative); Specific Gravity,Urine 1.004 (1.001-1.035); Urobilinogen,Urine <2.0 mg/dL (<2.0)
[2022-11-17 17:12] LABS: ALT 43 U/L (4-34); AST 29 U/L (14-36); African American GFR (CKD) >90 (>60 ml/min/1.73 sqM); Albumin 5.4 g/dL (3.5-5.0); Alkaline Phosphatase 93 U/L (38-126); Amylase 57 U/L (30-110); Anion Gap 12 mmol/L; Blood Urea Nitrogen 10 mg/dL (7-17); Calcium 10.4 mg/dL (8.4-10.2); Carbon Dioxide 24 mmol/L (22-30); Chloride 107 mmol/L (98-107); Glucose 92 mg/dL (74-99); Lipase 52 U/L (23-300); Non-African American GFR(CKD) >90 (>60 ml/min/1.73 sqM); Potassium 3.8 mmol/L (3.5-5.1); Sodium 143 mmol/L (137-145); Total Bilirubin 0.9 mg/dL (0.2-1.3); Total Protein 8.7 g/dL (6.3-8.2)
[2022-11-17 18:29] VITALS: BP 143/102; PULSE 98; RESP 19; TEMP 98.1
--- NOTE | 2022-11-17 18:39 | US ---
EXAMINATION TYPE: US abd limited kidneys/bladder DATE OF EXAM: 11/17/2022 COMPARISON: NONE CLINICAL HISTORY: abdominal pain. TECHNIQUE: Multiple sonographic images of the right upper quadrant, bilateral kidneys, and bladder ar e obtained. FINDINGS: EXAM MEASUREMENTS: Liver Length: 15.5 cm Gallbladder Wall: 0.2 cm CBD: 0.3 cm Right Kidney: 12.2 x 3.7 x 4.5 cm Left Kidney: 11.6 x 5.5 x 5.0 cm Pancreas: partially obscured by bowel gas, portions visualized wnl Liver: Increased attenuation, decreased visualization of vessels suggestive of fatty infiltrate Gallbladder: wnl CBD: wnl Right Kidney: No hydronephrosis or masses seen Left Kidney: No hydronephrosis or masses seen Bladder: wnl [employer] PRINTING MACHINIST NOTES: IMPRESSION: No evidence of renal mass or obstruction. Normal urinary bladder.
--- NOTE | 2022-11-17 18:40 | US ---
EXAMINATION TYPE: US pelvis complete transvag DATE OF EXAM: 11/17/2022 COMPARISON: NONE CLINICAL HISTORY: pelvic pressure during urination. TECHNIQUE: Transvaginal (TV) and Transabdominal (TA) . Transabdominal sonographic images of the pel vis were acquired. Transvaginal sonographic images were medically necessary to better assess the fol lowing anatomy: Date of LMP: mid October, patient doesn't remember date EXAM MEASUREMENTS: Uterus: 7.6x 3.1 x 4.2 cm Endometrial Stripe: 0.4 cm Right Ovary: 3.5 x 2.6 x 1.8 cm Left Ovary: 7.1 x 6.5 x 6.1 cm 1. Uterus: Anteverted wnl 2. Endometrium: wnl 3. Right Ovary: wnl 4. Left Ovary: cyst measuring 6.1 x 5.3 x 6.1cm with dependant debris Spectral, color and waveform doppler imaging shows good arterial and venous flow within the ovaries ; there is no evidence for ovarian torsion. 5. Bilateral Adnexa: wnl 6. Posterior cul-de-sac: wnl IMPRESSION: Large left ovarian cyst. No solid adnexal mass. Normal uterus. No evidence of ovarian torsion.
== END 2022-11-17 19:16 | disposition home or self-care (01) ==
LOC: EC 15:48
DX: N83.202 Unspecified ovarian cyst, left side (principal); R39.11 Hesitancy of micturition; F41.9 Anxiety disorder, unspecified; F32.A Depression, unspecified; F17.200 Nicotine dependence, unspecified, uncomplicated; Z88.0 Allergy status to penicillin
CPT/HCPCS: 36415; 76705; 76770; 76830; 76856; 80053; 81003; 81025; 82150; 83690; 85025; 93975; 99284

== ENCOUNTER 2023-12-25 16:51 | Emergency (ER) | payer OTHER ==
--- NOTE | 2023-12-25 17:35 | ED ---
General Adult HPI - General Source: patient Mode of arrival: ambulatory Limitations: no limitations <Ned Parker - Last Filed: 12/25/23 17:34> <Mercedes Rodriges - Last Filed: 12/25/23 23:28> - General Chief complaint: Nausea/Vomiting/Diarrhea Stated complaint: cough,fever, Preg-unknown wks Time Seen by Provider: 12/25/23 17:34 - History of Present Illness Initial comments: 28-year-old female presenting chief complaint of nausea and vomiting. Also admits to fever. Patient believes that she is , approximately 7 to 8- 1/2 months. States that she just found out on Saturday. She is having no abdominal pain. (Ned Parker) - Related Data Home Medications Medication Instructions Recorded Confirmed Etonogestrel [Nexplanon] 1 implant SQ DIRECTED 10/05/21 12/27/22 Previous Rx's Medication Instructions Recorded Mirtazapine [Remeron] 15 mg PO HS 30 Days #30 tab 12/29/22 fluPHENAZine [Prolixin] 2 mg PO BID 30 Days #60 tab 12/29/22 Metoclopramide [Reglan] 10 mg PO TID PRN #30 tab 12/25/23 Vit No.179/Iron/Folic 1 each PO DAILY #30 tab 12/25/23 [ Tablet] Allergies Allergy/AdvReac Type Severity Reaction Status Date / Time Penicillins Allergy Rash/Hives Verified 12/27/22 16:49 Review of Systems ROS Other: All systems not noted in ROS Statement are negative. <Ned Parker - Last Filed: 12/25/23 17:34> ROS Other: All systems not noted in ROS Statement are negative. <Mercedes Rodriges - Last Filed: 12/25/23 23:28> ROS Statement: Those systems with pertinent positive or pertinent negative responses have been documented in the HPI. Past Medical History Past Medical History: No Reported History Additional Past Medical History / Comment(s): ovarian cyst, frequent headaches which patient states her Doctor thinks has to do with her eyes History of Any Multi-Drug Resistant Organisms: None Reported Past Surgical History: Bowel Resection, Section Additional Past Surgical History / Comment(s): eye surgery as a 5 year old, bowel surgery at 4 months Past Anesthesia/Blood Transfusion Reactions: No Reported Reaction Additional Past Anesthesia/Blood Transfusion Reaction / Comment(s): patient was an infant with surgery so not sure but does not think she had a reaction, no previous blood transfusion Past Psychological History: Anxiety, Depression Smoking Status: Current every day smoker Past Alcohol Use History: Occasional Past Drug Use History: None Reported - Past Family History Mother Family Medical History: No Reported History Additional Family Medical History / Comment(s): Maternal Aunt has MS <Ned Parker - Last Filed: 12/25/23 17:34> General Exam Limitations: no limitations <Ned Parker - Last Filed: 12/25/23 17:34> - General Exam Comments Initial Comments: Visual Physical Exam Vital signs reviewed General: Well-appearing, nontoxic, no acute distress. Head: Normocephalic, atraumatic Eyes: PERRLA, EOMI ENT: Airway patent Chest: Nonlabored breathing Skin: No visual rash, normal skin tone Neuro: Alert and oriented 3 Musculoskeletal: No gross abnormalities (Ned Parker) Course Vital Signs 12/25/23 12/25/23 17:28 20:30 Temperature 98.5 F Pulse Rate 97 87 Respiratory 18 18 Rate Blood Pressure 148/96 130/84 O2 Sat by Pulse 100 98 Oximetry Medical Decision Making - Lab Data Result diagrams: 12/25/23 21:10 12/25/23 21:10 <Mercedes Rodriges - Last Filed: 12/25/23 23:28> - Lab Data Lab Results 12/25/23 12/25/23 12/25/23 Range/Units 18:07 18:07 19:58 WBC (3.8-10.6) k/uL RBC (3.80-5.40) m/uL Hgb (11.4-16.0) gm/dL Hct (34.0-46.0) % MCV (80.0-100.0) fL MCH (25.0-35.0) pg MCHC (31.0-37.0) g/dL RDW (11.5-15.5) % Plt Count (150-450) k/uL MPV Neutrophils % % Lymphocytes % % Monocytes % % Eosinophils % % Basophils % % Neutrophils # (1.3-7.7) k/uL Lymphocytes # (1.0-4.8) k/uL Monocytes # (0-1.0) k/uL Eosinophils # (0-0.7) k/uL Basophils # (0-0.2) k/uL PT (10.0-12.5) sec INR (<1.2) APTT (22.0-30.0) sec Fibrinogen (200-500) mg/dL Sodium (137-145) mmol/L Potassium (3.5-5.1) mmol/L Chloride (98-107) mmol/L Carbon Dioxide (22-30) mmol/L Anion Gap mmol/L BUN (7-17) mg/dL Creatinine (0.52-1.04) mg/dL Est GFR (CKD-EPI)AfAm (>60 ml/min/1.73 sqM) Est GFR (CKD-EPI)NonAf (>60 ml/min/1.73 sqM) Glucose (74-99) mg/dL Uric Acid (3.7-7.4) mg/dL Calcium (8.4-10.2) mg/dL Magnesium (1.6-2.3) mg/dL Total Bilirubin (0.2-1.3) mg/dL AST (14-36) U/L ALT (4-34) U/L Alkaline Phosphatase (38-126) U/L Lactate Dehydrogenase (120-246) U/L Total Protein (6.3-8.2) g/dL Albumin (3.5-5.0) g/dL Urine Color Dark Yellow Urine Appearance Cloudy H (Clear) Urine pH 6.0 (5.0-8.0) Ur Specific [place] 1.022 (1.001-1.035) Urine Protein 1+ H (Negative) Urine Glucose (UA) Negative (Negative) Urine Ketones 4+ H (Negative) Urine Blood Negative (Negative) Urine Nitrite Negative (Negative) Urine Bilirubin 1+ H (Negative) Urine Urobilinogen 12.0 (<2.0) mg/dL Ur Leukocyte Esterase Small H (Negative) Urine RBC 1 (0-5) /hpf Urine WBC 8 H (0-5) /hpf Ur Squamous Epith Cells 6 H (0-4) /hpf Urine Bacteria Occasional H (None) /hpf Urine Mucus Moderate H (None) /hpf Urine Creatinine 226.6 mg/dL Protein/Creatinin Ratio 0.102 Urine Total Protein 23.0 mg/dL Urine HCG, Qual Detected (Not Detectd) 12/25/23 12/25/23 12/25/23 Range/Units 21:10 21:10 21:10 WBC 8.5 (3.8-10.6) k/uL RBC 4.20 (3.80-5.40) m/uL Hgb 13.2 (11.4-16.0) gm/dL Hct 38.7 (34.0-46.0) % MCV 92.1 (80.0-100.0) fL MCH 31.4 (25.0-35.0) pg MCHC 34.1 (31.0-37.0) g/dL RDW 12.6 (11.5-15.5) % Plt Count 210 (150-450) k/uL MPV 8.9 Neutrophils % 73 % Lymphocytes % 20 % Monocytes % 4 % Eosinophils % 1 % Basophils % 0 % Neutrophils # 6.2 (1.3-7.7) k/uL Lymphocytes # 1.7 (1.0-4.8) k/uL Monocytes # 0.4 (0-1.0) k/uL Eosinophils # 0.1 (0-0.7) k/uL Basophils # 0.0 (0-0.2) k/uL PT 11.3 (10.0-12.5) sec INR 1.0 (<1.2) APTT 28.2 (22.0-30.0) sec Fibrinogen 612 H (200-500) mg/dL Sodium 137 (137-145) mmol/L Potassium 3.8 (3.5-5.1) mmol/L Chloride 115 H (98-107) mmol/L Carbon Dioxide 11 L (22-30) mmol/L Anion Gap 11 mmol/L BUN 3 L (7-17) mg/dL Creatinine 0.45 L (0.52-1.04) mg/dL Est GFR (CKD-EPI)AfAm >90 (>60 ml/min/1.73 sqM) Est GFR (CKD-EPI)NonAf >90 (>60 ml/min/1.73 sqM) Glucose 57 L (74-99) mg/dL Uric Acid 8.1 H (3.7-7.4) mg/dL Calcium 8.4 (8.4-10.2) mg/dL Magnesium 1.7 (1.6-2.3) mg/dL Total Bilirubin 1.1 (0.2-1.3) mg/dL AST 38 H (14-36) U/L ALT 26 (4-34) U/L Alkaline Phosphatase 110 (38-126) U/L Lactate Dehydrogenase 306 H (120-246) U/L Total Protein 6.1 L (6.3-8.2) g/dL Albumin 3.5 (3.5-5.0) g/dL Urine Color Urine Appearance (Clear) Urine pH (5.0-8.0) Ur Specific [place] (1.001-1.035) Urine Protein (Negative) Urine Glucose (UA) (Negative) Urine Ketones (Negative) Urine Blood (Negative) Urine Nitrite (Negative) Urine Bilirubin (Negative) Urine Urobilinogen (<2.0) mg/dL Ur Leukocyte Esterase (Negative) Urine RBC (0-5) /hpf Urine WBC (0-5) /hpf Ur Squamous Epith Cells (0-4) /hpf Urine Bacteria (None) /hpf Urine Mucus (None) /hpf Urine Creatinine mg/dL Protein/Creatinin Ratio Urine Total Protein mg/dL Urine HCG, Qual (Not Detectd) Disposition <Ned Parker - Last Filed: 12/25/23 17:34> Is patient prescribed a controlled substance at d/c from ED?: No Time of Disposition: 23:27 <Mercedes Rodriges - Last Filed: 12/25/23 23:28> Clinical Impression: Third trimester , Nausea Disposition: HOME SELF-CARE Condition: Stable Instructions (If sedation given, give patient instructions): (ED), Nausea and Vomiting in (ED) Additional Instructions: Please call the office in the morning to make an appointment. Let them know that you were in the emergency department. Take the and nausea medications as directed and return for any new or worsening symptoms Prescriptions: Vit No.179/Iron/Folic [ Tablet] 1 each PO DAILY #30 tab Metoclopramide [Reglan] 10 mg PO TID PRN #30 tab PRN Reason: Nausea Referrals: Christine Childers DO [Doctor of Osteopathic Medicine] - 1-2 days
[2023-12-25 17:39] VITALS: TEMP 98.5
[2023-12-25 18:39] LABS: Appearance,Urine Cloudy (Clear); Bacteria,Urine Occasional /hpf; Bilirubin,Urine 1+ (Negative); Blood,Urine Negative (Negative); Color,Urine Dark Yellow; Glucose,Urine (UA) Negative (Negative); Ketones,Urine 4+ (Negative); Leukocyte Esterase,Urine Small (Negative); Mucus,Urine Moderate /hpf; Nitrite,Urine Negative (Negative); Protein,Urine 1+ (Negative); RBC,Urine 1 /hpf (0-5); Specific Gravity,Urine 1.022 (1.001-1.035); Squamous Epithelial Cell,Urine 6 /hpf (0-4); WBC,Urine 8 /hpf (0-5)
[2023-12-25] MEDS: SODIUM CHLORIDE 0.9% 1,000 ML IV ONE ×2 (20:47→23:33)
[2023-12-25 21:25] LABS: Basophils % (A) 0 %; Eosinophils # (A) 0.1 k/uL (0-0.7); Eosinophils % (A) 1 %; HCT 38.7 % (34.0-46.0); HGB 13.2 gm/dL (11.4-16.0); Lymphocytes # (A) 1.7 k/uL (1.0-4.8); Lymphocytes % (A) 20 %; MCH 31.4 pg (25.0-35.0); MCHC 34.1 g/dL (31.0-37.0); MCV 92.1 fL (80.0-100.0); Mean Platelet Volume 8.9; Monocytes # (A) 0.4 k/uL (0-1.0); Monocytes % (A) 4 %; Neutrophils # (A) 6.2 k/uL (1.3-7.7); Neutrophils % (A) 73 %; Platelet Count 210 k/uL (150-450); RDW 12.6 % (11.5-15.5); WBC 8.5 k/uL (3.8-10.6)
[2023-12-25 21:29] LABS: ALT 26 U/L (4-34); African American GFR (CKD) >90 (>60 ml/min/1.73 sqM); Anion Gap 11 mmol/L; Blood Urea Nitrogen 3 mg/dL (7-17); Calcium 8.4 mg/dL (8.4-10.2); Carbon Dioxide 11 mmol/L (22-30); Chloride 115 mmol/L (98-107); Glucose 57 mg/dL (74-99); Non-African American GFR(CKD) >90 (>60 ml/min/1.73 sqM); Partial Thromboplastin Time 28.2 sec (22.0-30.0); Prothrombin Time 11.3 sec (10.0-12.5); Sodium 137 mmol/L (137-145); Total Bilirubin 1.1 mg/dL (0.2-1.3); Uric Acid 8.1 mg/dL (3.7-7.4)
[2023-12-25 21:32] LABS: Creatinine,Urine Random 226.6 mg/dL; Protein/Creatinine Ratio,Urine 0.102
[2023-12-25 21:37] LABS: AST 38 U/L (14-36); Albumin 3.5 g/dL (3.5-5.0); Alkaline Phosphatase 110 U/L (38-126); LDH 306 U/L (120-246); Magnesium 1.7 mg/dL (1.6-2.3); Potassium 3.8 mmol/L (3.5-5.1); Total Protein 6.1 g/dL (6.3-8.2)
--- NOTE | 2023-12-25 22:17 | US ---
EXAMINATION TYPE: US OB >= 14 wk fetus DATE OF EXAM: 12/25/2023 COMPARISON: None CLINICAL INDICATION: Female, 28 years old with history of abd pain, ; pelvic pain. No prenata l care TECHNIQUE: Transabdominal (TA) GESTATIONAL AGE / DATING Physician Established: Not yet established Dates by LMP: LMP unknown Dates by First Scan: No previous this is first scan Dates by Current Scan: (32 weeks/5 days) EDC: 02/14/24 Beta HCG (if available): Not available at this time SURVEY IUP: Single PLACENTA: Posterior PREVIA: No Previa KORTNEY: 12.0 cm Normal CERVICAL LENGTH (transabdominal: norm > 3.0cm): 4.1 cm BIOMETRY PRESENTATION: Breech LIE: Oblique BPD: 8.0 cm 32 weeks / 1 days HC: 29.7 cm 32 weeks / 6 days AC: 29.8 cm 33 weeks / 6 days FL: 6.45 cm 33 weeks / 2 days ESTIMATED WEIGHT IN GRAMS: 2188 grams ESTIMATED WEIGHT IN LBS/OZ: 4 lbs. 13 oz. HC/AC: 1.0 Normal FL/AC: 21.6 Normal HEART RATE: 152 bpm RHYTHM: Normal MATERNAL WALL MEASUREMENT: 3.8 cm from skin to anterior uterine wall (if exam limited due to body hab itus). Single live IUP seen measuring 32 weeks 5 days No cervical thinning. Single live intrauterine gestation. No placenta previa. Amniotic fluid index es timated within normal limits. biometric measurements congruent and within normal limits. Breech presentation is noted. IMPRESSION: As above.
[2023-12-25] MEDS: ONDANSETRON 4 MG/2 ML VIAL IVP STA (23:34)
[2023-12-25 23:39] VITALS: RESP 17
[2023-12-26 00:53] VITALS: BP 126/78; PULSE 88
[2023-12-26 08:55] LABS: Hepatitis B Surface Antigen Nonreactive
[2023-12-26 13:15] LABS: HIV 2 AB Non-Reactive (Non-Reactive); HIV AB P24 Non-Reactive (Non-Reactive); HIV P24 AG Non-Reactive (Non-Reactive)
== END 2023-12-26 00:58 | disposition home or self-care (01) ==
LOC: EC 16:51
DX: O21.9 Vomiting of pregnancy, unspecified (principal); O99.333 Smoking (tobacco) complicating pregnancy, third trimester; F17.200 Nicotine dependence, unspecified, uncomplicated; Z86.59 Personal history of other mental and behavioral disorders; Z3A.32 32 weeks gestation of pregnancy; Z88.0 Allergy status to penicillin
CPT/HCPCS: 36415; 86900; 86901; 82570; 80053; 84156; 83615; 83735; 84550; 85025; 85384; 85610; 85730; 86850; 81001; 81025; 76805; 99284; 96374; 96361 ×4; J2405; 86762; 86780; 87340; 87390

== ENCOUNTER 2024-02-12 10:06 | Inpatient (IN) | payer OTHER ==
[2024-02-12] MEDS ORDERED: METHYLERGONOVINE 0.2 MG/ML 1 ML AMP IM PRN ×3 (10:41→10:51)
[2024-02-12] MEDS ORDERED: LIDOCAINE 0.5% (PF) 5 MG/ML (50 ML SDV) SQ PRN (10:41)
[2024-02-12] MEDS ORDERED: TERBUTALINE 1 MG/ML VIAL SQ PRN (10:41)
[2024-02-12] MEDS ORDERED: miSOPROStoL 200 MCG TAB PO PRN ×3 (10:41→10:51)
[2024-02-12] MEDS ORDERED: OXYTOCIN 10 UNIT/ML 1 ML VIAL IM PRN ×3 (10:41→10:51)
[2024-02-12] MEDS ORDERED: CARBOPROST TROMETHAMINE 250 MCG/ML 1 ML AMP IM PRN ×3 (10:41→10:51)
[2024-02-12] MEDS ORDERED: TRANEXAMIC 1,000 MG/100ML-NACL 1,000 MG in EMPTY BAG 1 BAG IV PRN ×3 (10:41→10:51)
[2024-02-12 10:52] LABS: Basophils % (A) 0 %; Eosinophils # (A) 0.2 k/uL (0-0.7); Eosinophils % (A) 1 %; HCT 36.2 % (34.0-46.0); HGB 12.5 gm/dL (11.4-16.0); Lymphocytes # (A) 2.1 k/uL (1.0-4.8); Lymphocytes % (A) 17 %; MCH 31.9 pg (25.0-35.0); MCHC 34.6 g/dL (31.0-37.0); MCV 92.4 fL (80.0-100.0); Mean Platelet Volume 10.8; Monocytes # (A) 0.5 k/uL (0-1.0); Monocytes % (A) 4 %; Neutrophils # (A) 9.6 k/uL (1.3-7.7); Neutrophils % (A) 76 %; Platelet Count 179 k/uL (150-450); RBC 3.92 m/uL (3.80-5.40); RDW 13.9 % (11.5-15.5); WBC 12.6 k/uL (3.8-10.6)
[2024-02-12] MEDS: LACTATED RINGERS 1,000 ML IV SCH ×2 (11:04→16:30)
[2024-02-12] MEDS: CITRIC ACID-SODIUM CITRATE 15 ML CUP PO ONE (11:52)
[2024-02-12] MEDS ORDERED: OXYTOCIN 30 UNITS/500 ML NS BAG IV ONE (12:23)
[2024-02-12] MEDS ORDERED: ePHEDrine 50 MG/ML 1 ML VIAL ONE (12:23)
[2024-02-12] MEDS ORDERED: MORPHINE SULFATE (PF) 0.3 MG/0.3 ML SYR ONE (12:23)
--- NOTE | 2024-02-12 13:17 | P.HPOB ---
History of Present Illness H&P Date: 02/12/24 Chief Complaint: IUP @ 39 + weeks, h/o section x 1 28-year-old G2, P1 at 39-5/7 weeks dated by a third trimester ultrasound, patient presents for repeat section. Patient was seen in the office this week for first visit. Patient is requesting repeat section. Patient had a history of a primary performed at [facility] secondary to nonreassuring heart tones. Patient did have labs done in the ER approximately 2 and half months ago. Blood type of A positive, rubella status immune, hepatitis B surface engine negative, HIV negative, RPR is nonreactive, grew beta strep culture was negative as it was just obtained in the office this week. Patient does note good movement. A very limited anatomy scan was obtained limitations of gestational age were discussed with the patient in the office. Past Medical History Past Medical History: No Reported History Additional Past Medical History / Comment(s): ovarian cyst, frequent headaches which patient states her Doctor thinks has to do with her eyes History of Any Multi-Drug Resistant Organisms: None Reported Past Surgical History: Bowel Resection, Section Additional Past Surgical History / Comment(s): eye surgery as a 5 year old, bowel surgery at 4 months Past Anesthesia/Blood Transfusion Reactions: No Reported Reaction Additional Past Anesthesia/Blood Transfusion Reaction / Comment(s): patient was an with surgery so not sure but does not think she had a reaction, no previous blood transfusion Past Psychological History: Anxiety, Depression Smoking Status: Current every day smoker Past Alcohol Use History: Occasional Additional Past Alcohol Use History / Comment(s): 1.5 pack per day smoker for 7 years, occiasional alcohol use Past Drug Use History: None Reported - Past Family History Mother Family Medical History: No Reported History Additional Family Medical History / Comment(s): Maternal Aunt has MS Medications and Allergies Home Medications Medication Instructions Recorded Confirmed Type Vit No.179/Iron/Folic 1 each PO DAILY #30 tab 12/25/23 02/12/24 Rx [ Tablet] Allergies Allergy/AdvReac Type Severity Reaction Status Date / Time Penicillins Allergy Rash/Hives Verified 02/12/24 10:39 Exam Osteopathic Statement: *. No significant issues noted on an osteopathic structural exam other than those noted in the History and Physical/Consult. Vital Signs Temp Pulse Resp BP Pulse Ox 02/12/24 10:16 97.8 F 75 18 125/83 99 Intake and Output 02/11/24 02/12/24 02/12/24 22:59 06:59 14:59 Other: Weight 96.615 kg Targeted physical exam is performed this date General is well-nourished well- developed female with poor dentition. Patient is in no acute distress, breathing is nonlabored, heart has a regular rhythm, abdomen is gravid, cervical exam is deferred, heart tones were noted to be category 1 and she is not eugene. Results Result Diagrams: 02/12/24 10:35 Abnormal Lab Results - Last 24 Hours (Table) 02/12/24 Range/Units 10:35 WBC 12.6 H (3.8-10.6) k/uL Neutrophils # 9.6 H (1.3-7.7) k/uL Assessment and Plan (1) Term Current Visit: Yes Status: Acute Code(s): Z34.90 - SNOMED Code(s): 06341623 (2) History of section Narrative/Plan: Desires repeat section Current Visit: Yes Status: Acute Code(s): Z98.891 - SNOMED Code(s): 111566336 Plan: 28-year-old G2, P1 at 39+ weeks presents for repeat section. Surgery is reviewed and risks are discussed. Limitations of minimal care were reviewed in the office. Patient states understanding. Will proceed with repeat section.
--- NOTE | 2024-02-12 13:19 | P.OP ---
Date of Procedure: 02/12/24 Preoperative Diagnosis: IUP at 39+ weeks, history of x 1, desires repeat, limited to no care Postoperative Diagnosis: Same Procedure(s) Performed: Repeat section Anesthesia: spinal Surgeon: Christine Childers Automatic Thread Winder #1: Lars Saleh Estimated Blood Loss (ml): 568 IV fluids (ml): 1,000 Urine output (ml): 300 Pathology: none sent Condition: stable Disposition: observation Indications for Procedure: History of x 1 desires repeat Operative Findings: Viable male delivered at 1243, weight of 6 pounds 15 ounces, Apgars of 9 and 9 at 1 and 5 minutes respectively. Large left ovarian simple appearing cyst is appreciated approximately 8 cm. Description of Procedure: The patient was prepped and draped in the usual fashion after spinal anesthesia was administered by the anesthesia department. A Pfannenstiel incision was made and extended of the abdominal cavity without difficulty. The bladder peritoneum was elevated and incised and reflected distally. A 2 cm incision was made in the transverse plane of the lower uterine segment to enter the uterus at which time clear fluid was noted. The incision was extended in both directions using the bandage scissors. The head was encountered within the field and delivered up and through the incision where the nose and mouth were thoroughly suctioned. Remainder of the was delivered onto the surgical field where the cord was doubly clamped, cut, and the infant was passed for resuscitative measures with weight and Apgars as noted above. The placenta was delivered manually, intact, and was grossly normal with a grossly normal three-vessel cord. The uterus was exteriorized and the interior cavity of the uterus swept of any remaining placental and membranous fragments with a laparotomy sponge. The margins of the incision were grasped with Allis clamps and the incision closed in 2 layers. First layer was a running locking layer of 0 Vicryl from margin to margin followed by a second layer of imbricating 0 Vicryl from margin to margin. Any small points of bleeding were then made hemostatic with the Bovie. Once hemostasis was achieved, the posterior cul-de-sac was suctioned with a guard and the uterine and ovarian findings are as noted above. The uterus was replaced within the abdominal cavity and the gutters swept of any r emaining blood fluid or clot. The incision was again reexamined and hemostasis was noted to be excellent. Any small point of bleeding were made hemostatic with the Bovie. Once hemostasis was achieved the parietal peritoneum was loosely reapproximated. The layer of muscles were examined and made hemostatic with the Bovie. Attention was then turned to the fascia which was closed with 2 running stitches of 0 Vicryl proceeding from 1 lateral edge to the other. The subcutaneous tissues were irrigated, made hemostatic with the Bovie, and reapproximated with a running stitch of 30 Vicryl. The skin was reapproximated with 4-0 Vicryl. Estimated blood loss for the case was approximately 568 mL. All sponge instrument and needle counts are correct. There were no complications. The patient tolerated the procedure well and proceeded to the recovery room in stable condition. Both mother and infant are resting comfortably in recovery.
[2024-02-12] MEDS ORDERED: SIMETHICONE 80 MG CHEWABLE PO PRN (16:20)
[2024-02-12] MEDS ORDERED: diphenhydrAMINE 25 MG CAP PO PRN (16:20)
[2024-02-12] MEDS ORDERED: diphenhydrAMINE 50 MG CAP PO PRN (16:20)
[2024-02-12] MEDS ORDERED: ONDANSETRON 4 MG/2 ML VIAL IVP PRN (16:20)
[2024-02-12] MEDS ORDERED: METOCLOPRAMIDE 5 MG/ML 2 ML VIAL IVP PRN (16:20)
[2024-02-12] MEDS ORDERED: diphenhydrAMINE 50 MG/ML 1 ML VIAL IVP PRN (16:20)
[2024-02-12] MEDS ORDERED: NALOXONE 0.4 MG/ML 1 ML VIAL IV PRN (16:20)
[2024-02-12] MEDS ORDERED: ZOLPIDEM 5 MG TAB PO PRN (16:20)
[2024-02-12] MEDS: ACETAMINOPHEN IV (For NPO) 1,000 MG in EMPTY BAG 1 BAG IVPB SCH (16:40)
[2024-02-12] MEDS: diphenhydrAMINE 50 MG/ML 1 ML VIAL IVP PRN (18:50)
[2024-02-12] MEDS: IBUPROFEN 600 MG TAB PO SCH (21:08)
[2024-02-12] MEDS: SENNOSIDES-DOCUSATE SODIUM 1 EACH TAB PO SCH (21:08)
[2024-02-12] MEDS: ACETAMINOPHEN TAB 500 MG TAB PO SCH (21:28)
[2024-02-13] MEDS: IBUPROFEN IV 800 MG in SODIUM CHLORIDE 0.9% 250 ML IV SCH (00:54)
[2024-02-13 08:52] LABS: Basophils % (A) 0 %; Eosinophils # (A) 0.1 k/uL (0-0.7); Eosinophils % (A) 1 %; HCT 37.2 % (34.0-46.0); HGB 12.3 gm/dL (11.4-16.0); Lymphocytes # (A) 1.7 k/uL (1.0-4.8); Lymphocytes % (A) 12 %; MCH 31.5 pg (25.0-35.0); MCHC 32.9 g/dL (31.0-37.0); MCV 95.6 fL (80.0-100.0); Mean Platelet Volume 10.7; Monocytes # (A) 0.5 k/uL (0-1.0); Monocytes % (A) 3 %; Neutrophils # (A) 11.5 k/uL (1.3-7.7); Neutrophils % (A) 82 %; Platelet Count 168 k/uL (150-450); RBC 3.89 m/uL (3.80-5.40)
[2024-02-13] MEDS: PRENATAL VIT-IRON-FOLIC ACID 1 EACH TABLET PO SCH (09:09)
--- NOTE | 2024-02-13 10:57 | P.PN ---
Progress Note - Text Progress Note Date: 02/13/24 (6807) Anesthesia Postop day 1 Subjective: Status Post section with Duramorph. Patient seen and examined. Doing well without complaint. VAS 0. No nausea or vomiting. Mild pruritus tolerable.. Denies fever. Gross lower extremity strength intact. Without apparent anesthetic complications. Objective: Vital signs reviewed Heart: Regular Rate Lungs: Good chest excursion Abdomen: Appears nondistended Assessment: Status post section with Duramorph postop day 1 Plan: 1. Continue current care with your medical management. Anticipated end to the duration of the Duramorph around surgery time today. You may see increased pain needs around this time. 2. This note was dictated using [employer] software. Please be advised there is a potential for misspellings or errors in journeyman welder.
--- NOTE | 2024-02-13 11:05 | P.PNOBGPC ---
Subjective - Subjective Principal diagnosis: Postop day 1, repeat section Interval history: Patient is doing well. She is ambulating and voiding without difficulty. She is tolerating a regular diet without nausea or vomiting. Patient reports: Reports appetite normal, Reports voiding normally, Reports pain well controlled, Reports ambulating normally : doing well Objective - Vital Signs Latest vital signs: Vital Signs Temp Pulse Resp BP Pulse Ox 02/13/24 08:05 97.9 F 77 18 105/68 99 02/13/24 00:00 65 16 104/69 98 02/12/24 20:00 80 18 118/68 02/12/24 16:00 97.6 F 86 18 117/66 100 02/12/24 15:13 97.6 F 86 18 114/63 100 02/12/24 15:00 97.6 F 69 18 115/63 100 02/12/24 14:44 97.6 F 79 18 126/63 100 02/12/24 14:30 97.3 F L 73 18 121/64 100 02/12/24 14:13 59 L 16 114/63 100 02/12/24 13:58 97.4 F L 59 L 16 120/64 100 02/12/24 13:43 96.9 F L 75 18 119/69 100 02/12/24 13:29 96.6 F L 82 18 118/66 100 02/12/24 13:15 18 100 02/12/24 13:12 96.6 F L 74 18 119/67 100 Intake and Output 02/12/24 02/13/24 02/13/24 22:59 06:59 14:59 Intake Total 600 Output Total 592 500 Balance -592 100 Intake: Oral 600 Output: Urine 299 500 Uretheral (Gamble) 299 Output, Quantitative 293 Blood Loss Other: Voiding Method Indwelling Catheter # Voids 500 - Exam Extremities: Present: normal, edema Abdomen: Present: normal appearance Incision: Present: normal, dry, intact Uterus: Present: normal, firm - Labs Labs: Abnormal Lab Results - Last 24 Hours (Table) 02/13/24 Range/Units 08:12 WBC 14.0 H (3.8-10.6) k/uL Neutrophils # 11.5 H (1.3-7.7) k/uL Assessment and Plan (1) Term Current Visit: Yes Status: Acute Code(s): Z34.90 - ENCNTR FOR SUPRVSN OF NORMAL , UNSP, UNSP TRIMESTER SNOMED Code(s): 49121756 (2) History of section Current Visit: Yes Status: Acute Code(s): Z98.891 - HISTORY OF UTERINE SCAR FROM PREVIOUS SURGERY SNOMED Code(s): 865524522 (3) Status post section Current Visit: Yes Status: Acute Code(s): Z98.891 - HISTORY OF UTERINE SCAR FROM PREVIOUS SURGERY SNOMED Code(s): 857469838 Plan: Patient is doing well postoperatively. Encourage increased ambulation. Plan to discontinue dressing around 24 hours postoperatively. Anticipate discharge home tomorrow.
--- NOTE | 2024-02-14 09:32 | P.DS ---
Providers Date of admission: 02/12/24 10:06 Expected date of discharge: 02/14/24 Attending physician: Christine Childers Primary care physician: Stated None - Discharge Diagnosis(es) (1) Term Current Visit: Yes Status: Acute (2) History of section Current Visit: Yes Status: Acute (3) Status post section Current Visit: Yes Status: Acute Hospital Course: 28-year-old G2, P1 at 39+ weeks presented to the office this week after no care. Patient did have labs and an ultrasound done at the emergency department. Patient has a history of x 1 for nonreassuring heart tones at [facility], patient states she desires repeat section. Patient was taken back to the operating room where repeat section was performed without difficulty. Patient delivered a viable male infant at 1243, weight of 6 pounds 15 ounces, Apgars of 9 and 9 at 1 and 5 minutes respectively. A large left simple ovarian cyst was appreciated at the time of sect ion. Patient's postoperative course has been uneventful. In this postoperative day #2 she is ambulating and voiding without difficulty. She is tolerating a regular diet without nausea or vomiting. Lochia is minimal to moderate. She is bottlefeeding. Pain is well-controlled with oral pain medication. Patient Condition at Discharge: Good Plan - Discharge Summary New Discharge Prescriptions: No Action Vit No.179/Iron/Folic [ Tablet] 1 each PO DAILY #30 tab Discharge Medication List Vit No.179/Iron/Folic [ Tablet] 1 each PO DAILY #30 tab 12/25/23 [Rx] Follow up Appointment(s)/Referral(s): Christine Childers DO [Doctor of Osteopathic Medicine] - 2 Weeks Patient Instructions/Handouts: (DC), (GEN) Activity/Diet/Wound Care/Special Instructions: No intercourse, tampons or douching. No heavy lifting greater than a gallon of milk. No driving for two weeks. Call with any fever, shakes or chills, with any pain not alleviated by over the counter meds, or with any quesions or concerns. Discharge Disposition: HOME SELF-CARE
[2024-02-14 12:58] VITALS: PULSE 81; RESP 17; TEMP 98.2
[2024-02-14 13:38] VITALS: BP 117/73
== END 2024-02-14 13:15 | disposition home or self-care (01) | DRG 540 ==
LOC: 4FBP 10:06
PROVIDERS: ADMIT Obstetrics & Gynecology Obstetrics; ATTEND Obstetrics & Gynecology Obstetrics
PROC: 10D00Z1 Extraction of Products of Conception, Low, Open Approach (ICD-10-PCS; principal; 2024-02-12 12:00)
DX: O34.211 Maternal care for low transverse scar from previous cesarean delivery (principal); F17.200 Nicotine dependence, unspecified, uncomplicated; F32.A Depression, unspecified; F41.9 Anxiety disorder, unspecified; L29.9 Pruritus, unspecified; N83.292 Other ovarian cyst, left side; O34.83 Maternal care for other abnormalities of pelvic organs, third trimester; O99.334 Smoking (tobacco) complicating childbirth; O99.344 Other mental disorders complicating childbirth; Z37.0 Single live birth; Z3A.39 39 weeks gestation of pregnancy; Z88.0 Allergy status to penicillin
CPT/HCPCS: 85025; 86850; 86900; 86901

== ENCOUNTER 2024-11-05 15:45 | Inpatient (IN) | payer MEDICAID, OTHER ==
--- NOTE | 2024-11-05 16:10 | ED ---
General Adult HPI - General Source: patient Mode of arrival: ambulatory Limitations: no limitations <Codey Phoenix - Last Filed: 11/07/24 21:07> <Unique Thompson - Last Filed: 11/09/24 16:15> - General Chief complaint: Psychiatric Symptoms Stated complaint: suicidal idealation Time Seen by Provider: 11/05/24 16:01 - History of Present Illness Initial comments: Dictation was produced using [employer] dictation software. please excuse any grammatical, word or spelling errors. Chief Complaint: 28-year-old female presents with suicidal attempt History of Present Illness: Patient is a 28-year-old female presents to the emergency department for suicidal attempt. She states that 4 days ago she took half of a bottle of gabapentin. Yesterday at around 10 PM she took the second half of the gabapentin bottle. States his medications were prescribed to her. Patient states she took about 30 to 40 pills during each ingestion. She also took a handful of muscle relaxants. She does not know the exact name for it. States that the muscle relaxants were also prescribed to her. Patient was worse to come to the ER by her sister who she states is now her decision-maker. Patient states she feels a little dizzy however does not complain of any pain complaints. The ROS documented in this emergency department record has been reviewed and confirmed by me. Those systems with pertinent positive or negative responses have been documented in the HPI. All other systems are other negative and/or noncontributory. (Codey Phoenix) - Related Data Home Medications Medication Instructions Recorded Confirmed No Known Home Medications 11/05/24 11/05/24 Allergies Allergy/AdvReac Type Severity Reaction Status Date / Time Penicillins Allergy Rash/Hives Verified 11/05/24 17:50 Review of Systems ROS Other: All systems not noted in ROS Statement are negative. <Codey Phoenix - Last Filed: 11/07/24 21:07> ROS Other: All systems not noted in ROS Statement are negative. <Unique Thompson - Last Filed: 11/09/24 16:15> ROS Statement: Those systems with pertinent positive or pertinent negative responses have been documented in the HPI. Past Medical History Past Medical History: No Reported History Additional Past Medical History / Comment(s): ovarian cyst, frequent headaches which patient states her Doctor thinks has to do with her eyes History of Any Multi-Drug Resistant Organisms: None Reported Past Surgical History: Bowel Resection, Section Additional Past Surgical History / Comment(s): eye surgery as a 5 year old, bowel surgery at 4 months Past Anesthesia/Blood Transfusion Reactions: No Reported Reaction Additional Past Anesthesia/Blood Transfusion Reaction / Comment(s): patient was an with surgery so not sure but does not think she had a reaction, no previous blood transfusion Past Psychological History: Anxiety, Depression Smoking Status: Current every day smoker Past Alcohol Use History: Occasional Past Drug Use History: None Reported - Past Family History Mother Family Medical History: No Reported History Additional Family Medical History / Comment(s): Maternal Aunt has MS <Codey Phoenix - Last Filed: 11/07/24 21:07> General Exam Limitations: no limitations <Codey Phoenix - Last Filed: 11/07/24 21:07> - General Exam Comments Initial Comments: PHYSICAL EXAM: General Impression: Alert and oriented x3, not in acute distress HEENT: Normocephalic atraumatic, extra-ocular movements intact, pupils equal and reactive to light bilaterally, mucous membranes moist. Cardiovascular: Heart regular rate and rhythm Chest: Able to complete full sentences, no retractions, no tachypnea Abdomen: abdomen soft, non-tender, non-distended, no organomegaly Musculoskeletal: Pulses present and equal in all extremities, no peripheral edema Motor: no focal deficits noted Neurological: CN II-XII grossly intact, no focal motor or sensory deficits noted Skin: Intact with no visualized rashes Psych: Normal affect and mood (Codey Phoenix) Course <Codey Phoenix - Last Filed: 11/07/24 21:07> Vital Signs 11/05/24 11/05/24 15:47 19:44 Temperature 98 F 98.6 F Pulse Rate 75 65 Respiratory 18 16 Rate Blood Pressure 147/93 103/64 O2 Sat by Pulse 98 98 Oximetry - Reevaluation(s) Reevaluation #1: 11/05/24 17:27 Cussed with poison control recommended 6-hour observation from the time of patient arrival to the ER. (Codey Phoenix) EKG Findings - EKG Comments: EKG Findings:: My EKG interpretation: Ventricular rate 5, sinus rhythm,. 152, QRS 92, QTc 392. No MI prolongation, no QTC prolongation, no ST or T-wave changes noted. Overall, this EKG is unremarkable <Codey Phoenix - Last Filed: 11/07/24 21:07> Medical Decision Making - Lab Data Result diagrams: 11/05/24 16:19 11/05/24 20:43 <Codey Phoenix - Last Filed: 11/07/24 21:07> - Lab Data Result diagrams: 11/05/24 16:19 11/05/24 20:43 <Unique Thompson - Last Filed: 11/09/24 16:15> - Medical Decision Making Was pt. sent in by a medical professional or institution (JENNIFER Duran, VIDEO SPECIALIST, urgent care, hospital, or detention...) When possible be specific @ -No Did you speak to anyone other than the patient for history (EMS, parent, family, police, friend...)? What history was obtained from this source @ -Some history obtained family at the bedside Did you review nursing and triage notes (agree or disagree)? Why? @ -I reviewed and agree with nursing and triage notes Were old charts reviewed (outside hosp., previous admission, EMS record, old EKG, old radiological studies, urgent care reports/EKG's, detention records)? Report findings @ -No old charts were reviewed Differential Diagnosis (chest pain, altered mental status, abdominal pain women, abdominal pain men, vaginal bleeding, musculoskeletal, weakness, fever, dyspnea, syncope, headache, dizziness, GI bleed, back pain, seizure, CVA, palpatations, mental health)? @ -Differential Mental Health: Depression, anxiety, bipolar, psychosis, schizophrenia, borderline personality, situational depression, adjustment disorder, behavioral disorder, brain tumor, malingering, substance abuse, encephalopathy, medication reaction, dementia, hypothyroidism, degenerative neurologic disorder, lupus.... This is not meant to be all-inclusive list EKG interpreted by me (3pts min.). @ -None done X-rays interpreted by me (1pt min.). @ -None done CT interpreted by me (1pt min.). @ -None done U/S interpreted by me (1pt. min.). @ -None done What testing was considered but not performed or refused? (CT, X-rays, U/S, labs)? Why? @ -None What meds were considered but not given or refused? Why? @ -None Was smoking cessation discussed for >3mins.? @ -No Were there social determinants of health that impacted care today? How? (Homelessness, low income, unemployed, alcoholism, drug addiction, transportation, low edu. Level, literacy, decrease access to med. care, longterm, rehab)? @ -No Was there de-escalation of care discussed even if they declined (Discuss DNR or withdrawal of care, Hospice)? DNR status @ -No What co-morbidities impacted this encounter? (DM, HTN, Smoking, COPD, CAD, Cancer, CVA, ARF, Chemo, Hep., AIDS, mental health diagnosis, sleep apnea, morbid obesity)? @ -None Was patient admitted / discharged? Hospital course, mention meds given and route, prescriptions, significant lab abnormalities, going to OR and other pertinent info. @ -70-year-old female presents with suicidal attempt. She overdosed on multiple tabs of gabapentin along with muscle relaxers. Vital signs upon arrival are stable. Physical examination is benign. Patient not showing any signs of toxicity.Labs obtained. Tox labs are negative. Case discussed with poison control recommends 6-hour ER observation. Patient will be cleared after 6 hours of ER observation for EPS. Patient pending 6-hour observation for medical clearance to be evaluated by EPS. Patient observed in the emergency department with total of 6 hours. Reevaluated at 10:00 PM found to be stable to condition. Patient medically cleared for EPS evaluation. Patient admitted to mental health unit Did you discuss the management of the patient with other professionals (professionals i.e. , PA, VIDEO SPECIALIST, lab, RT, psych nurse, medical social consultant, leverman, teacher, credit risk officer, field case manager)? Give summary @ -No Was critical care preformed (if so, how long)? @ -No Undiagnosed new problem with uncertain prognosis? @ -No Drug Therapy requiring intensive monitoring for toxicity (Heparin, Nitro, Insulin, Cardizem)? @ -No Were any procedures done? @ -No Diagnosis/symptom? Acute, or Chronic, or Acute on Chronic? Uncomplicated (without systemic symptoms) or Complicated (systemic symptoms)? @ -Suicidal attempt Side effects of treatment? @ -No Exacerbation, Progression, or Severe Exacerbation? @ -No Poses a threat to life or bodily function? How? (Chest pain, [place], [place], pneumonia, PE, COPD, DKA, ARF, appy, cholecystitis, CVA, Diverticulitis, Homicidal, Suicidal, threat to staff... and all critical care pts) @ -yes (Codey Phoenix) Patient signed out to myself pending EPS evaluation. In brief she is a 28-year-old female presenting for SI after ingesting multiple tablets of gabapentin and muscle relaxants over the course of the last 4 days. Medically cleared at this point. Patient seen and evaluated by Vanda, EPS nurse. Patient will be admitted to EPS. (Unique Thompson) - Lab Data Lab Results 11/05/24 11/05/24 11/05/24 Range/Units 16:19 16:19 16:19 WBC 10.7 H (3.8-10.6) k/uL RBC 4.55 (3.80-5.40) m/uL Hgb 14.4 (11.4-16.0) gm/dL Hct 40.7 (34.0-46.0) % MCV 89.3 (80.0-100.0) fL MCH 31.5 (25.0-35.0) pg MCHC 35.3 (31.0-37.0) g/dL RDW 13.2 (11.5-15.5) % Plt Count 233 (150-450) k/uL MPV 8.8 Neutrophils % 72 % Lymphocytes % 17 % Monocytes % 8 % Eosinophils % 3 % Basophils % 0 % Neutrophils # 7.7 (1.3-7.7) k/uL Lymphocytes # 1.8 (1.0-4.8) k/uL Monocytes # 0.8 (0-1.0) k/uL Eosinophils # 0.3 (0-0.7) k/uL Basophils # 0.0 (0-0.2) k/uL PT 11.9 (10.0-12.5) sec INR 1.1 (<1.2) APTT 23.9 (22.0-30.0) sec Sodium (137-145) mmol/L Potassium (3.5-5.1) mmol/L Chloride (98-107) mmol/L Carbon Dioxide (22-30) mmol/L Anion Gap mmol/L BUN (7-17) mg/dL Creatinine (0.52-1.04) mg/dL Est GFR (CKD-EPI)AfAm (>60 ml/min/1.73 sqM) Est GFR (CKD-EPI)NonAf (>60 ml/min/1.73 sqM) Glucose (74-99) mg/dL POC Glucose (mg/dL) (70-110) mg/dL POC Glu Handbag Stitcher ID Estimated Ave Glu mg/dL mg/dL Hemoglobin A1c (<=6.0) % Osmolality 300 H (275-295) mOsm/kg Plasma Lactic Acid Germán (0.7-2.0) mmol/L Calcium (8.4-10.2) mg/dL Magnesium 2.3 (1.6-2.3) mg/dL Total Bilirubin (0.2-1.3) mg/dL Conjugated Bilirubin (0.0-0.3) mg/dL Unconjugated Bilirubin (0.0-1.1) mg/dL Delta Bilirubin (0.0-0.2) mg/dL AST (14-36) U/L ALT (4-34) U/L Alkaline Phosphatase (38-126) U/L Total Protein (6.3-8.2) g/dL Albumin (3.5-5.0) g/dL TSH (0.465-4.680) mIU/L Urine Color Urine Appearance (Clear) Urine pH (5.0-8.0) Ur Specific [place] (1.001-1.035) Urine Protein (Negative) Urine Glucose (UA) (Negative) Urine Ketones (Negative) Urine Blood (Negative) Urine Nitrite (Negative) Urine Bilirubin (Negative) Urine Urobilinogen (<2.0) mg/dL Ur Leukocyte Esterase (Negative) Urine RBC (0-5) /hpf Urine WBC (0-5) /hpf Ur Squamous Epith Cells (0-4) /hpf Amorphous Sediment (None) /hpf Urine Bacteria (None) /hpf Urine Mucus (None) /hpf Urine HCG, Qual (Not Detectd) Salicylates 14.0 mg/dL Urine Opiates Screen (NotDetected) Ur Oxycodone Screen (NotDetected) Urine Methadone Screen (NotDetected) Acetaminophen <10.0 ug/mL Ur Barbiturates Screen (NotDetected) U Tricyclic Antidepress (NotDetected) Ur Phencyclidine Scrn (NotDetected) Ur Amphetamines Screen (NotDetected) U Methamphetamines Scrn (NotDetected) U Benzodiazepines Scrn (NotDetected) Urine Cocaine Screen (NotDetected) U Marijuana (THC) Screen (NotDetected) Serum Alcohol <10 mg/dL SARS-CoV-2 (PCR) (Not Detectd) 11/05/24 11/05/24 11/05/24 Range/Units 16:19 16:19 16:26 WBC (3.8-10.6) k/uL RBC (3.80-5.40) m/uL Hgb (11.4-16.0) gm/dL Hct (34.0-46.0) % MCV (80.0-100.0) fL MCH (25.0-35.0) pg MCHC (31.0-37.0) g/dL RDW (11.5-15.5) % Plt Count (150-450) k/uL MPV Neutrophils % % Lymphocytes % % Monocytes % % Eosinophils % % Basophils % % Neutrophils # (1.3-7.7) k/uL Lymphocytes # (1.0-4.8) k/uL Monocytes # (0-1.0) k/uL Eosinophils # (0-0.7) k/uL Basophils # (0-0.2) k/uL PT (10.0-12.5) sec INR (<1.2) APTT (22.0-30.0) sec Sodium (137-145) mmol/L Potassium (3.5-5.1) mmol/L Chloride (98-107) mmol/L Carbon Dioxide (22-30) mmol/L Anion Gap mmol/L BUN (7-17) mg/dL Creatinine (0.52-1.04) mg/dL Est GFR (CKD-EPI)AfAm (>60 ml/min/1.73 sqM) Est GFR (CKD-EPI)NonAf (>60 ml/min/1.73 sqM) Glucose (74-99) mg/dL POC Glucose (mg/dL) (70-110) mg/dL POC Glu Handbag Stitcher ID Estimated Ave Glu mg/dL 94 mg/dL Hemoglobin A1c 4.9 (<=6.0) % Osmolality (275-295) mOsm/kg Plasma Lactic Acid Germán 0.7 (0.7-2.0) mmol/L Calcium (8.4-10.2) mg/dL Magnesium (1.6-2.3) mg/dL Total Bilirubin (0.2-1.3) mg/dL Conjugated Bilirubin (0.0-0.3) mg/dL Unconjugated Bilirubin (0.0-1.1) mg/dL Delta Bilirubin (0.0-0.2) mg/dL AST (14-36) U/L ALT (4-34) U/L Alkaline Phosphatase (38-126) U/L Total Protein (6.3-8.2) g/dL Albumin (3.5-5.0) g/dL TSH (0.465-4.680) mIU/L Urine Color Colorless Urine Appearance Cloudy H (Clear) Urine pH 6.5 (5.0-8.0) Ur Specific [place] 1.007 (1.001-1.035) Urine Protein 1+ H (Negative) Urine Glucose (UA) Negative (Negative) Urine Ketones Negative (Negative) Urine Blood Negative (Negative) Urine Nitrite Negative (Negative) Urine Bilirubin Negative (Negative) Urine Urobilinogen <2.0 (<2.0) mg/dL Ur Leukocyte Esterase Negative (Negative) Urine RBC <1 (0-5) /hpf Urine WBC 4 (0-5) /hpf Ur Squamous Epith Cells 35 H (0-4) /hpf Amorphous Sediment Rare H (None) /hpf Urine Bacteria Rare H (None) /hpf Urine Mucus Rare H (None) /hpf Urine HCG, Qual (Not Detectd) Salicylates mg/dL Urine Opiates Screen Not Detected (NotDetected) Ur Oxycodone Screen Not Detected (NotDetected) Urine Methadone Screen Not Detected (NotDetected) Acetaminophen ug/mL Ur Barbiturates Screen Not Detected (NotDetected) U Tricyclic Antidepress Not Detected (NotDetected) Ur Phencyclidine Scrn Not Detected (NotDetected) Ur Amphetamines Screen Not Detected (NotDetected) U Methamphetamines Scrn Not Detected (NotDetected) U Benzodiazepines Scrn Not Detected (NotDetected) Urine Cocaine Screen Not Detected (NotDetected) U Marijuana (THC) Screen Not Detected (NotDetected) Serum Alcohol mg/dL SARS-CoV-2 (PCR) (Not Detectd) 11/05/24 11/05/24 11/05/24 Range/Units 16:26 17:09 20:43 WBC (3.8-10.6) k/uL RBC (3.80-5.40) m/uL Hgb (11.4-16.0) gm/dL Hct (34.0-46.0) % MCV (80.0-100.0) fL MCH (25.0-35.0) pg MCHC (31.0-37.0) g/dL RDW (11.5-15.5) % Plt Count (150-450) k/uL MPV Neutrophils % % Lymphocytes % % Monocytes % % Eosinophils % % Basophils % % Neutrophils # (1.3-7.7) k/uL Lymphocytes # (1.0-4.8) k/uL Monocytes # (0-1.0) k/uL Eosinophils # (0-0.7) k/uL Basophils # (0-0.2) k/uL PT (10.0-12.5) sec INR (<1.2) APTT (22.0-30.0) sec Sodium 142 (137-145) mmol/L Potassium 4.1 (3.5-5.1) mmol/L Chloride 108 H (98-107) mmol/L Carbon Dioxide 22 (22-30) mmol/L Anion Gap 12 mmol/L BUN 11 (7-17) mg/dL Creatinine 1.03 (0.52-1.04) mg/dL Est GFR (CKD-EPI)AfAm 86 (>60 ml/min/1.73 sqM) Est GFR (CKD-EPI)NonAf 74 (>60 ml/min/1.73 sqM) Glucose 65 L (74-99) mg/dL POC Glucose (mg/dL) (70-110) mg/dL POC Glu Handbag Stitcher ID Estimated Ave Glu mg/dL mg/dL Hemoglobin A1c (<=6.0) % Osmolality (275-295) mOsm/kg Plasma Lactic Acid Germán (0.7-2.0) mmol/L Calcium 9.8 (8.4-10.2) mg/dL Magnesium (1.6-2.3) mg/dL Total Bilirubin (0.2-1.3) mg/dL Conjugated Bilirubin (0.0-0.3) mg/dL Unconjugated Bilirubin (0.0-1.1) mg/dL Delta Bilirubin (0.0-0.2) mg/dL AST (14-36) U/L ALT (4-34) U/L Alkaline Phosphatase (38-126) U/L Total Protein (6.3-8.2) g/dL Albumin (3.5-5.0) g/dL TSH (0.465-4.680) mIU/L Urine Color Urine Appearance (Clear) Urine pH (5.0-8.0) Ur Specific [place] (1.001-1.035) Urine Protein (Negative) Urine Glucose (UA) (Negative) Urine Ketones (Negative) Urine Blood (Negative) Urine Nitrite (Negative) Urine Bilirubin (Negative) Urine Urobilinogen (<2.0) mg/dL Ur Leukocyte Esterase (Negative) Urine RBC (0-5) /hpf Urine WBC (0-5) /hpf Ur Squamous Epith Cells (0-4) /hpf Amorphous Sediment (None) /hpf Urine Bacteria (None) /hpf Urine Mucus (None) /hpf Urine HCG, Qual Not Detected (Not Detectd) Salicylates mg/dL Urine Opiates Screen (NotDetected) Ur Oxycodone Screen (NotDetected) Urine Methadone Screen (NotDetected) Acetaminophen ug/mL Ur Barbiturates Screen (NotDetected) U Tricyclic Antidepress (NotDetected) Ur Phencyclidine Scrn (NotDetected) Ur Amphetamines Screen (NotDetected) U Methamphetamines Scrn (NotDetected) U Benzodiazepines Scrn (NotDetected) Urine Cocaine Screen (NotDetected) U Marijuana (THC) Screen (NotDetected) Serum Alcohol mg/dL SARS-CoV-2 (PCR) Not Detected (Not Detectd) 11/05/24 11/05/24 11/05/24 Range/Units 20:43 20:43 22:06 WBC (3.8-10.6) k/uL RBC (3.80-5.40) m/uL Hgb (11.4-16.0) gm/dL Hct (34.0-46.0) % MCV (80.0-100.0) fL MCH (25.0-35.0) pg MCHC (31.0-37.0) g/dL RDW (11.5-15.5) % Plt Count (150-450) k/uL MPV Neutrophils % % Lymphocytes % % Monocytes % % Eosinophils % % Basophils % % Neutrophils # (1.3-7.7) k/uL Lymphocytes # (1.0-4.8) k/uL Monocytes # (0-1.0) k/uL Eosinophils # (0-0.7) k/uL Basophils # (0-0.2) k/uL PT (10.0-12.5) sec INR (<1.2) APTT (22.0-30.0) sec Sodium (137-145) mmol/L Potassium (3.5-5.1) mmol/L Chloride (98-107) mmol/L Carbon Dioxide (22-30) mmol/L Anion Gap mmol/L BUN (7-17) mg/dL Creatinine (0.52-1.04) mg/dL Est GFR (CKD-EPI)AfAm (>60 ml/min/1.73 sqM) Est GFR (CKD-EPI)NonAf (>60 ml/min/1.73 sqM) Glucose (74-99) mg/dL POC Glucose (mg/dL) 95 (70-110) mg/dL POC Glu Handbag Stitcher ID [address] Estimated [address] Glu mg/dL mg/dL Hemoglobin A1c (<=6.0) % Osmolality (275-295) mOsm/kg Plasma Lactic Acid Germán (0.7-2.0) mmol/L Calcium (8.4-10.2) mg/dL Magnesium (1.6-2.3) mg/dL Total Bilirubin 0.4 (0.2-1.3) mg/dL Conjugated Bilirubin 0.0 (0.0-0.3) mg/dL Unconjugated Bilirubin 0.4 (0.0-1.1) mg/dL Delta Bilirubin 0.0 (0.0-0.2) mg/dL AST 23 (14-36) U/L ALT 15 (4-34) U/L Alkaline Phosphatase 59 (38-126) U/L Total Protein 6.5 (6.3-8.2) g/dL Albumin 4.4 (3.5-5.0) g/dL TSH 1.020 (0.465-4.680) mIU/L Urine Color Urine Appearance (Clear) Urine pH (5.0-8.0) Ur Specific [place] (1.001-1.035) Urine Protein (Negative) Urine Glucose (UA) (Negative) Urine Ketones (Negative) Urine Blood (Negative) Urine Nitrite (Negative) Urine Bilirubin (Negative) Urine Urobilinogen (<2.0) mg/dL Ur Leukocyte Esterase (Negative) Urine RBC (0-5) /hpf Urine WBC (0-5) /hpf Ur Squamous Epith Cells (0-4) /hpf Amorphous Sediment (None) /hpf Urine Bacteria (None) /hpf Urine Mucus (None) /hpf Urine HCG, Qual (Not Detectd) Salicylates 9.8 mg/dL Urine Opiates Screen (NotDetected) Ur Oxycodone Screen (NotDetected) Urine Methadone Screen (NotDetected) Acetaminophen ug/mL Ur Barbiturates Screen (NotDetected) U Tricyclic Antidepress (NotDetected) Ur Phencyclidine Scrn (NotDetected) Ur Amphetamines Screen (NotDetected) U Methamphetamines Scrn (NotDetected) U Benzodiazepines Scrn (NotDetected) Urine Cocaine Screen (NotDetected) U Marijuana (THC) Screen (NotDetected) Serum Alcohol mg/dL SARS-CoV-2 (PCR) (Not Detectd) Disposition <Codey Phoenix - Last Filed: 11/07/24 21:07> <Unique Thompson - Last Filed: 11/09/24 16:15> Clinical Impression: Suicide attempt Disposition: TRANSFER TO PSYCH HOSP/UNIT Condition: Stable
[2024-11-05 16:59] LABS: INR 1.1 (<1.2); Partial Thromboplastin Time 23.9 sec (22.0-30.0); Prothrombin Time 11.9 sec (10.0-12.5)
[2024-11-05 17:04] LABS: Acetaminophen <10.0 ug/mL; Alcohol <10 mg/dL
[2024-11-05 17:05] LABS: Amorphous Sediment,Urine Rare /hpf; Appearance,Urine Cloudy (Clear); Bacteria,Urine Rare /hpf; Bilirubin,Urine Negative (Negative); Blood,Urine Negative (Negative); Color,Urine Colorless; Glucose,Urine (UA) Negative (Negative); Ketones,Urine Negative (Negative); Leukocyte Esterase,Urine Negative (Negative); Mucus,Urine Rare /hpf; Nitrite,Urine Negative (Negative); PH, Urine 6.5 (5.0-8.0); Protein,Urine 1+ (Negative); RBC,Urine <1 /hpf (0-5); Specific Gravity,Urine 1.007 (1.001-1.035); Squamous Epithelial Cell,Urine 35 /hpf (0-4); Urobilinogen,Urine <2.0 mg/dL (<2.0); WBC,Urine 4 /hpf (0-5)
[2024-11-05 17:07] LABS: Magnesium 2.3 mg/dL (1.6-2.3)
[2024-11-05 17:08] LABS: Basophils % (A) 0 %; Eosinophils # (A) 0.3 k/uL (0-0.7); Eosinophils % (A) 3 %; HCT 40.7 % (34.0-46.0); HGB 14.4 gm/dL (11.4-16.0); Lymphocytes # (A) 1.8 k/uL (1.0-4.8); Lymphocytes % (A) 17 %; MCH 31.5 pg (25.0-35.0); MCHC 35.3 g/dL (31.0-37.0); MCV 89.3 fL (80.0-100.0); Mean Platelet Volume 8.8; Monocytes # (A) 0.8 k/uL (0-1.0); Monocytes % (A) 8 %; Neutrophils # (A) 7.7 k/uL (1.3-7.7); Neutrophils % (A) 72 %; Platelet Count 233 k/uL (150-450); RBC 4.55 m/uL (3.80-5.40); RDW 13.2 % (11.5-15.5); WBC 10.7 k/uL (3.8-10.6)
[2024-11-05 17:08] LABS: Urn Cannabinoid Scrn Not Detected (NotDetected)
[2024-11-05 17:09] LABS: Amphetamine Screen,Urine Not Detected (NotDetected); Barbiturate Screen,Urine Not Detected (NotDetected); Benzodiazepines Screen,Urine Not Detected (NotDetected); Cocaine Screen,Urine Not Detected (NotDetected); Methadone Screen, Urine Not Detected (NotDetected); Opiate Screen,Urine Not Detected (NotDetected); Oxycodone Screen, Urine Not Detected (NotDetected); Phencyclidine Screen,Urine Not Detected (NotDetected); Tricyclic Antidepressant,Urine Not Detected (NotDetected)
[2024-11-05 21:49] LABS: African American GFR (CKD) 86 (>60 ml/min/1.73 sqM); Anion Gap 12 mmol/L; Blood Urea Nitrogen 11 mg/dL (7-17); Calcium 9.8 mg/dL (8.4-10.2); Carbon Dioxide 22 mmol/L (22-30); Chloride 108 mmol/L (98-107); Glucose 65 mg/dL (74-99); Non-African American GFR(CKD) 74 (>60 ml/min/1.73 sqM); Potassium 4.1 mmol/L (3.5-5.1); Sodium 142 mmol/L (137-145)
[2024-11-05 22:07] LABS: Glucose,Whole Blood 95 mg/dL (70-110)
[2024-11-05 22:54] LABS: Albumin 4.4 g/dL (3.5-5.0); Bilirubin,Unconjugated 0.4 mg/dL (0.0-1.1); Salicylate 9.8 mg/dL; Total Bilirubin 0.4 mg/dL (0.2-1.3); Total Protein 6.5 g/dL (6.3-8.2)
[2024-11-06] MEDS ORDERED: haloperidoL 5 MG TAB PO PRN (00:46)
[2024-11-06] MEDS ORDERED: LORazepam 2 MG/ML INJ IM PRN (00:46)
[2024-11-06] MEDS ORDERED: IBUPROFEN 600 MG TAB PO PRN (00:46)
[2024-11-06] MEDS ORDERED: ACETAMINOPHEN TAB 325 MG TAB PO PRN (00:46)
[2024-11-06] MEDS ORDERED: HALOPERIDOL LACTATE 5 MG/ML 1 ML VIAL IM PRN (00:46)
[2024-11-06] MEDS ORDERED: MAGNESIUM HYDROXIDE 2,400 MG/30 ML CUP PO PRN (00:46)
[2024-11-06] MEDS: NICOTINE 14MG/24HR PATCH TRANSDERM SCH (08:44)
[2024-11-06] MEDS: MAG HYDROX/AL HYDROX/SIMETH 355 ML BOTTLE PO PRN (08:45)
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
[2024-11-06] MEDS: FLUoxetine HCL 20 MG CAP PO SCH (17:20)
[2024-11-06] MEDS: hydrOXYzine HCL 25 MG TAB PO PRN (17:21)
[2024-11-06] MEDS: LORazepam 1 MG TAB PO PRN (23:32)
--- NOTE | 2024-11-07 00:27 | HP ---
HISTORY AND PHYSICAL CHIEF COMPLAINT: Major depression and overdose with Tylenol. HISTORY OF PRESENT ILLNESS: This 28-year-old female, who presented to the room after she became very depressed and tried to kill herself with overdose Tylenol. She was admitted for treatment. REVIEW OF SYSTEMS: She denies any headaches, chest pain, hypertension, abdominal pain, urinary or gastrointestinal issues, diabetes, etc. Past medical history, family history, personal and social histories are all otherwise unremarkable or noncontributory or unchanged. PHYSICAL EXAMINATION: VITAL SIGNS: Normal. HEAD, EARS, EYES, NOSE, MOUTH AND THROAT: Normal except for strabismus. She has a left exotropia. CHEST: Clear. CARDIAC: Normal. ABDOMEN: Soft and nontender. EXTREMITIES: Normal. IMPRESSION: 1. Major depression. 2. Suicidal personality. 3. Strabismus. RECOMMENDATIONS: None at this time. Thank you respectfully, BAUDILIO / VIPUL: [phone] /
[2024-11-07 11:17] LABS: Glucose,Whole Blood 59 mg/dL (70-110)
[2024-11-07 11:31] LABS: Glucose,Whole Blood 78 mg/dL (70-110)
--- NOTE | 2024-11-07 12:35 | P.PN ---
Progress Note - Text Progress Note Date: 11/07/24 Dictation was produced using [employer] dictation software. Please excuse any grammatical, word or spelling errors. Interval history: Patient was seen in the hallway and was directable and agreeable to speak with the writer editor in the office for psychiatric follow-up. She states that she is feeling alright today, reported that she wants to go home, she states that anxiety and depression are bad, she rated depression at 8/10, and anxiety at 10/10, she reported that she still having fleeting thoughts of suicide without any intention or plan. She denied any homicidal ideation, intention or paln. Denied any auditory or visual hallucinations. Admitted to good sleep, and admitted to poor appetite, reported that she lost 15 Ibs over the last 7-8 months. She reported that she has been taking her medications and she denied any current side effects. She states that she has been getting along with everyone in the unit. Patient was encouraged to attend groups and participate in the milieu. She is tending to her ADLs. She states that she lives with her sister and her and reported that she can go back after discharge. Mental status exam: General Appearance: Patient appears to be stated age is alert, directable, and attempts to cooperate. Patient appears to have poor hygiene and grooming. Behavior: Patient is seated without any agitated behavior. Speech: Patient's speech is fluent and nonpressured. Mood/Affect: Patient reports their mood is "depressed", affect is flat, congruent and constricted. Suicidality/Homicidality: Patient denies having any homicidal ideation intent or plan. Denies any suicidal ideations intent or plan Perceptions: Patient denies any visual hallucinations and denies any auditory hallucinations Though content/process: There is no evidence of any delusional thought content and thought process is linear and goal-directed. Memory and concentration: AOX3, grossly intact for the purposes of this session. Able to recall recent and remote events with reasonable accuracy. Judgment and insight: Poor Impression: - Major depressive disorder, recurrent, severe - Unspecified intellectual disability (per historical records) - History of ADHD - Nicotine dependence Assessment/Plan: Continue with current diagnosis. Patient continues to meet criteria for inpatient psychiatric admission for symptom stabilization and safety. Patient will be maintained on current psychotropic medication regimen. Monitor for medication compliance and for any psychotropic medication side effects. Will continue to monitor ongoing response to treatment. Encouraged participation in milieu.
--- NOTE | 2024-11-08 12:29 | P.PN ---
Progress Note - Text Progress Note Date: 11/08/24 Dictation was produced using [employer] dictation software. Please excuse any grammatical, word or spelling errors. Interval history: Patient was seen in the hallway and was directable and agreeable to speak with the specification writer in the office for psychiatric follow-up. The pt states that she is feeling "not too good." Reported that she is still depressed and reported her depression is very high today which she rated at over10/10. She denied any current suicidal, self harm, or homicidal thoughts, or behaviors, intention or plan. She rated anxiety at 10/10, and reported that she is overwhelmed because many people are at the unit. She denied any AVH. She reported that she slept well last night, and admitted to good appetite. She states that she is trying to get along with everyone in the unit. She states that she has been taking her medications, denied any current side effects. She reported that she was on Remeron in the past, and reported that was not helping. She was educated on her current as needed medication, and asked to try Vistaril prn for anxiety. Mental status exam: General Appearance: Patient appears to be stated age is alert, directable, and attempts to cooperate. Patient appears to have poor hygiene and grooming. Behavior: Patient is seated without any agitated behavior. Speech: Patient's speech is fluent and nonpressured. Mood/Affect: Patient reports their mood is "depressed", affect is flat, congruent and constricted. Suicidality/Homicidality: Patient denies having any homicidal ideation intent or plan. Denies any suicidal ideations intent or plan Perceptions: Patient denies any visual hallucinations and denies any auditory hallucinations Though content/process: There is no evidence of any delusional thought content and thought process is linear and goal-directed. Memory and concentration: AOX3, grossly intact for the purposes of this session. Able to recall recent and remote events with reasonable accuracy. Judgment and insight: Poor Impression: - Major depressive disorder, recurrent, severe - Unspecified intellectual disability (per historical records) - History of ADHD - Nicotine dependence Assessment/Plan: Continue with current diagnosis. Patient continues to meet criteria for inpatient psychiatric admission for symptom stabilization and s afety. Patient will be maintained on current psychotropic medication regimen. Monitor for medication compliance and for any psychotropic medication side effects. Will continue to monitor ongoing response to treatment. Encouraged participation in milieu. Pt was encouraged to try hydroxyzine as needed for anxiety, was educated on Prozac and that it may take some time to kick in to help with depression, will plan to increase Prozac tomorrow to 30 mg po daily
[2024-11-09] MEDS: FLUoxetine HCL 10 MG CAP PO SCH (08:52)
--- NOTE | 2024-11-09 16:55 | P.PN ---
Progress Note - Text Progress Note Date: 11/09/24 Interval history: Patient was seen in the hallway and was directable and agreeable to speak with the show card writer in the office for psychiatric follow-up. The pt states that she is feeling "good." She denies depressed mood today. She reports she slept all night. She reports fair appetite. She denied any current suicidal, self harm, or homicidal thoughts, or behaviors, intention or plan. She reports high anxiety today, took a Vistaril earlier today which helped reduce her anxiety. She denied any AVH. She states that she has been taking her medications, denied any current side effects. She started her Prozac at 30 mg this morning and reports she is tolerating it well, fells better on 30 mg daily. Mental status exam: General Appearance: Patient appears to be stated age, fair hygiene and grooming, dressed in sweats Behavior: Patient is seated without any agitated behavior. Speech: Patient's speech is fluent and non-pressured. Mood/Affect: Patient reports their mood is "good, better today", affect is congruent and constricted. Suicidality/Homicidality: Patient denies having any homicidal ideation intent or plan. Denies any suicidal ideation, intent or plan. Perceptions: Patient denies any visual hallucinations and denies any auditory hallucinations Though content/process: There is no evidence of any delusional thought content and thought process is linear and goal-directed. Memory and concentration: AOX3, grossly intact for the purposes of this session. Able to recall recent and remote events with reasonable accuracy. Judgment and insight: Poor Impression: - Major depressive disorder, recurrent, severe - Unspecified intellectual disability (per historical records) - History of ADHD - Nicotine dependence Assessment/Plan: Continue with current diagnosis. Patient continues to meet criteria for inpatient psychiatric admission for symptom stabilization and safety. Patient will be maintained on current psychotropic medication regimen. Monitor for medication compliance and for any psychotropic medication side effects. Will continue to monitor ongoing response to treatment. Encouraged participation in milieu. Plan to discharge in the next 1-2 days if continues to stabilize.
[2024-11-10 07:18] VITALS: BP 98/61; PULSE 61; RESP 14; TEMP 97.9
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
== END 2024-11-10 13:16 | disposition home or self-care (01) | DRG 751 ==
LOC: EC 15:45 → 3MHU 23:34
PROVIDERS: ADMIT Psychiatry & Neurology Psychiatry; ATTEND Psychiatry & Neurology Psychiatry
DX: F33.2 Major depressive disorder, recurrent severe without psychotic features (principal); F17.210 Nicotine dependence, cigarettes, uncomplicated; F41.9 Anxiety disorder, unspecified; F90.9 Attention-deficit hyperactivity disorder, unspecified type; R51.9 Headache, unspecified; T48.1X2A Poisoning by skeletal muscle relaxants [neuromuscular blocking agents], intentional self-harm, initial encounter; F41.0 Panic disorder [episodic paroxysmal anxiety]; T42.6X2A Poisoning by other antiepileptic and sedative-hypnotic drugs, intentional self-harm, initial encounter; F79 Unspecified intellectual disabilities; H50.9 Unspecified strabismus; Z62.819 Personal history of unspecified abuse in childhood; Z79.899 Other long term (current) drug therapy; Z28.310 Unvaccinated for COVID-19; Z91.410 Personal history of adult physical and sexual abuse; Z88.0 Allergy status to penicillin
CPT/HCPCS: 36415; 80048; 80076; 80143; 80179; 80306; 80320; 81001; 81025; 82075; 83036; 83605; 83735; 83930; 84443; 85025; 85610; 85730; 87635; 93005; 99285

== ENCOUNTER 2025-01-05 15:54 | Emergency (ER) | payer OTHER ==
--- NOTE | 2025-01-05 17:02 | ED ---
ENT HPI - General Chief complaint: Dental/Oral Stated complaint: dental pain Time Seen by Provider: 01/05/25 16:59 Source: patient Mode of arrival: ambulatory Limitations: no limitations - History of Present Illness Initial comments: 29-year-old female presenting for dental pain x 2 months. Reports pain has worsened in the right upper side of the mouth the past couple of days. She has been taking ibuprofen with mild relief. She is able to swallow and breathe without difficulties. Denies fever, nausea, vomiting, nasal congestion, cough. - Related Data Previous Rx's Medication Instructions Recorded FLUoxetine HCL [PROzac] 30 mg PO DAILY 30 Days #90 cap 11/10/24 Nicotine 14Mg/24Hr Patch [Habitrol] 1 patch TRANSDERM DAILY patch 11/10/24 hydrOXYzine HCL [Atarax] 25 mg PO TID PRN 30 Days #30 tab 11/10/24 clindamycin HCL 300 mg PO QID #40 cap 01/05/25 Allergies Allergy/AdvReac Type Severity Reaction Status Date / Time Penicillins Allergy Rash/Hives Verified 11/05/24 17:50 Review of Systems ROS Statement: Those systems with pertinent positive or pertinent negative responses have been documented in the HPI. ROS Other: All systems not noted in ROS Statement are negative. Past Medical History Past Medical History: No Reported History Additional Past Medical History / Comment(s): ovarian cyst, frequent headaches which patient states her Doctor thinks has to do with her eyes History of Any Multi-Drug Resistant Organisms: None Reported Past Surgical History: Bowel Resection, Section Additional Past Surgical History / Comment(s): eye surgery as a 5 year old, bowel surgery at 4 months Past Anesthesia/Blood Transfusion Reactions: No Reported Reaction Additional Past Anesthesia/Blood Transfusion Reaction / Comment(s): patient was an infant with surgery so not sure but does not think she had a reaction, no previous blood transfusion Past Psychological History: Anxiety, Depression Smoking Status: Current every day smoker Past Alcohol Use History: Occasional Past Drug Use History: None Reported - Past Family History Mother Family Medical History: No Reported History Additional Family Medical History / Comment(s): Maternal Aunt has MS General Exam Limitations: no limitations General appearance: alert, in no apparent distress Head exam: Present: atraumatic, normocephalic, normal inspection Eye exam: Present: normal appearance, PERRL, EOMI. Absent: scleral icterus, conjunctival injection, periorbital swelling ENT exam: Present: normal oropharynx, mucous membranes moist, other. Absent: normal exam (Dental caries throughout however no erythema, drainage, or fluctuant masses.) Neck exam: Present: normal inspection. Absent: tenderness, meningismus, lymphadenopathy Respiratory exam: Present: normal lung sounds bilaterally. Absent: respiratory distress, wheezes, rales, rhonchi, stridor Cardiovascular Exam: Present: regular rate, normal rhythm, normal heart sounds. Absent: systolic murmur, diastolic murmur, rubs, gallop, clicks Neurological exam: Present: alert, oriented X3 Psychiatric exam: Present: normal affect, normal mood Skin exam: Present: warm, dry, intact, normal color. Absent: rash Course Vital Signs 01/05/25 15:55 Temperature 97.9 F Pulse Rate 100 Respiratory 20 Rate Blood Pressure 133/94 O2 Sat by Pulse 99 Oximetry Medical Decision Making - Medical Decision Making Was pt. sent in by a medical professional or institution (, PA, PET COUNSELOR, urgent care, hospital, or halfway...) When possible be specific @ -No Did you speak to anyone other than the patient for history (EMS, parent, family, police, friend...)? What history was obtained from this source @ -No Did you review nursing and triage notes (agree or disagree)? Why? @ -I reviewed and agree with nursing and triage notes Were old charts reviewed (outside hosp., previous admission, EMS record, old EKG, old radiological studies, urgent care reports/EKG's, halfway records)? Report findings @ -No old charts were reviewed Differential Diagnosis (chest pain, altered mental status, abdominal pain women, abdominal pain men, vaginal bleeding, weakness, fever, dyspnea, syncope, headache, dizziness, GI bleed, back pain, seizure, CVA, palpatations, mental health, musculoskeletal)? @ -Dental abscess, dental infection, gingivitis, aphthous ulcer EKG interpreted by me (3pts min.). @ -None X-rays interpreted by me (1pt min.). @ -None done CT interpreted by me (1pt min.). @ -None done U/S interpreted by me (1pt. min.). @ -None done What testing was considered but not performed or refused? (CT, X-rays, U/S, labs)? Why? @ -None What meds were considered but not given or refused? Why? @ -None Did you discuss the management of the patient with other professionals (professionals i.e. , PA, PET COUNSELOR, lab, RT, psych nurse, social service technician, clearing hand, teacher, driver license reviewing officer, registered nurse hh case manager)? Give summary @ -No Was smoking cessation discussed for >3mins.? @ -No Was critical care preformed (if so, how long)? @ -No Were there social determinants of health that impacted care today? How? (Homelessness, low income, unemployed, alcoholism, drug addiction, transportation, low edu. Level, literacy, decrease access to med. care, long-term, rehab)? @ -No Was there de-escalation of care discussed even if they declined (Discuss DNR or withdrawal of care, Hospice)? DNR status @ -No What co-morbidities impacted this encounter? (DM, HTN, Smoking, COPD, CAD, Cancer, CVA, ARF, Chemo, Hep., AIDS, mental health diagnosis, sleep apnea, morbid obesity)? @ -None Was patient admitted / discharged? Hospital course, mention meds given and route, prescriptions, significant lab abnormalities, going to OR and other pertinent info. @ -Discharge. 29-year-old female with dental pain x 2 months. No red flag symptoms. No visible abscesses. Patient was provided with dose of Toradol for pain control and provided with a outpatient prescription for clindamycin. Appropriate return precautions and follow-up care discussed. Advised to follow- up with dentist. Patient is agreeable to plan. Case was discussed with ED attending Dr. Galo. Undiagnosed new problem with uncertain prognosis? @ -No Drug Therapy requiring intensive monitoring for toxicity (Heparin, Nitro, Insulin, Cardizem)? @ -No Were any procedures done? @ -No Diagnosis/symptom? @ -Dental infection Acute, or Chronic, or Acute on Chronic? @ -Acute Uncomplicated (without systemic symptoms) or Complicated (systemic symptoms)? @ -Uncomplicated. Side effects of treatment? @ -No Exacerbation, Progression, or Severe Exacerbation? @ -No Poses a threat to life or bodily function? How? (Chest pain, [place], [place], pneumonia, PE, COPD, DKA, ARF, appy, cholecystitis, CVA, Diverticulitis, Homicidal, Suicidal, threat to staff... and all critical care pts) @ -No Disposition Clinical Impression: Dental infection Disposition: HOME SELF-CARE Condition: Stable Instructions (If sedation given, give patient instructions): Toothache (ED) Additional Instructions: Take clindamycin as prescribed and follow-up with your dentist. Please return to the Emergency Department if symptoms worsen or any other concerns. Prescriptions: clindamycin HCL 300 mg PO QID #40 cap Is patient prescribed a controlled substance at d/c from ED?: No Referrals: Aleksandar Alves MD [Primary Care Provider] - 1-2 days Time of Disposition: 17:02
[2025-01-05] MEDS: KETOROLAC 15 MG/ML 1 ML VIAL IM STA (17:19)
[2025-01-05 17:25] VITALS: BP 117/75; PULSE 70; RESP 16; TEMP 98.5
== END 2025-01-05 17:25 | disposition home or self-care (01) ==
LOC: EC 15:54
DX: K04.7 Periapical abscess without sinus (principal); F17.200 Nicotine dependence, unspecified, uncomplicated; Z88.0 Allergy status to penicillin
CPT/HCPCS: 99282; 96372; J1885